=== PATIENT | female | born 1935 | race Caucasian/White ===

== ENCOUNTER 2018-03-17 09:24 | Emergency (ER) | payer MEDICARE, OTHER ==
[~2018-03-17] VITALS: Ht 152.4 cm; Wt 55.0 kg
[~2018-03-17 09:24] MED LIST: ALPR0.5T8 PO; ASPI-611 PO; CALC-729 PO; ESTR0.3T10 PO; HYDR12.5 PO; HYDR200T84 PO; IBAN150T8 PO; MULT1TAB74 PO
[2018-03-17] MEDS ORDERED: normal saline 1000ML IV soln IV ONE (10:00)
[2018-03-17 10:28] LABS: BASOPHILS % (AUTO) 0.1 % (0-1); EOSINOPHILS # (AUTO) 0.2 X10'3 (0-0.9); EOSINOPHILS % (AUTO) 1.6 % (0-6); HEMATOCRIT 35.5 % (35.0-45.0); HEMOGLOBIN 12.3 g/dl (12.0-16.0); LYMPHOCYTES # (AUTO) 0.7 X10'3 (1.1-4.8); LYMPHOCYTES % (AUTO) 5.3 % (21-51); MEAN CORPUSCULAR HEMOGLOBIN 31.8 PG (27.0-31.0); MEAN CORPUSCULAR HGB CONC 34.7 % (33.0-36.5); MEAN CORPUSCULAR VOLUME 91.5 FL (78-98); MEAN PLATELET VOLUME 8.1 FL (7.4-10.4); MONOCYTES % (AUTO) 7.3 % (2-12); NEUTROPHILS # (AUTO) 11.9 X10'3 (1.8-7.7); NEUTROPHILS % (AUTO) 85.7 % (42-75); PLATELET COUNT 357 X10'3 (140-440); RED BLOOD COUNT 3.88 X10'6 (4.20-5.60); RED CELL DISTRIBUTION WIDTH 13.7 % (11.5-14.5); WHITE BLOOD COUNT 13.8 X10'3 (4.5-11.0)
[2018-03-17 10:43] LABS: ALANINE AMINOTRANSFERASE 17 U/L (12-78); ALBUMIN 2.4 G/DL (3.4-5.0); ALBUMIN/GLOBULIN RATIO 0.6 (1.1-1.5); ALKALINE PHOSPHATASE 148 IU/L (46-116); ANION GAP 11 (8-16); ASPARTATE AMINO TRANSFERASE 26 U/L (10-37); BILIRUBIN,TOTAL 0.7 MG/DL (0.1-1.0); BLOOD UREA NITROGEN 18 MG/DL (7-18); BUN/CREATININE RATIO 21.2 (6.6-38.0); CALCIUM 8.2 MG/DL (8.5-10.1); CHLORIDE 103 MMOL/L (99-107); CREATININE 0.85 MG/DL (0.40-0.90); GLUCOSE 117 MG/DL (70-104); SODIUM 141 MMOL/L (135-145); TOTAL CARBON DIOXIDE 27.4 MMOL/L (24-32); TOTAL PROTEIN 6.2 G/DL (6.4-8.2); eGFR 64 ML/MIN
[2018-03-17 10:44] LABS: POTASSIUM 2.6 MMOL/L (3.5-5.1)
[2018-03-17] MEDS ORDERED: ciprofloxacin lact 400MG/200ML 200 ML IV STA (10:47)
[2018-03-17] MEDS ORDERED: METR250T PO (10:49)
[2018-03-17] MEDS ORDERED: CIPR-230 PO (10:49)
[2018-03-17] MEDS ORDERED: ONDA4TAB9 SL (10:49)
[2018-03-17] MEDS ORDERED: potassium Cl oral solution 20 MEQ/15 ML PO ONE (10:50)
[2018-03-17 13:44] VITALS: BP 128/66
== END 2018-03-17 13:46 | disposition home or self-care (01) ==
LOC: ER 09:25
DX: K57.92 Diverticulitis of intestine, part unspecified, without perforation or abscess without bleeding (principal); I10 Essential (primary) hypertension; Z90.49 Acquired absence of other specified parts of digestive tract; Z98.890 Other specified postprocedural states; Z88.5 Allergy status to narcotic agent; Z79.2 Long term (current) use of antibiotics; Z79.82 Long term (current) use of aspirin; Z79.899 Other long term (current) drug therapy
CPT/HCPCS: 36415; 71045; 80053; 83605; 85025; 87040; 93005; 96361; 96365; 99285; J0744; J7030

== ENCOUNTER 2018-03-23 13:15 | Inpatient (IN) | payer MEDICARE, OTHER ==
[~2018-03-23] VITALS: Ht 160 cm; Wt 87.5 kg
[2018-03-23] MEDS: NORepinephrine 8 MG in normal saline 250ml IV soln IV SCH (00:14)
[~2018-03-23 13:15] MED LIST changes: +CIPR-230 PO; +METR250T PO; +ONDA4TAB9 SL
[2018-03-23 13:48] LABS: BASOPHILS % (AUTO) 0.1 % (0-1); EOSINOPHILS % (AUTO) 0 % (0-6); HEMATOCRIT 35.8 % (35.0-45.0); HEMOGLOBIN 12.3 g/dl (12.0-16.0); LYMPHOCYTES # (AUTO) 0.4 X10'3 (1.1-4.8); LYMPHOCYTES % (AUTO) 1.5 % (21-51); MEAN CORPUSCULAR HEMOGLOBIN 31.6 PG (27.0-31.0); MEAN CORPUSCULAR HGB CONC 34.4 % (33.0-36.5); MEAN CORPUSCULAR VOLUME 91.8 FL (78-98); MEAN PLATELET VOLUME 7.8 FL (7.4-10.4); MONOCYTES # (AUTO) 0.1 X10'3 (0-0.9); MONOCYTES % (AUTO) 0.6 % (2-12); NEUTROPHILS # (AUTO) 25.9 X10'3 (1.8-7.7); NEUTROPHILS % (AUTO) 97.8 % (42-75); PLATELET COUNT 458 X10'3 (140-440); RED CELL DISTRIBUTION WIDTH 14.7 % (11.5-14.5)
[2018-03-23 13:58] LABS: WHITE BLOOD COUNT 26.4 X10'3 (4.5-11.0)
[2018-03-23] MEDS ORDERED: normal saline 1000ML IV soln IV ONE (14:00)
[2018-03-23 14:03] LABS: ALANINE AMINOTRANSFERASE 19 U/L (12-78); ALBUMIN 2.1 G/DL (3.4-5.0); ALBUMIN/GLOBULIN RATIO 0.6 (1.1-1.5); ALKALINE PHOSPHATASE 141 IU/L (46-116); ANION GAP 14 (8-16); ASPARTATE AMINO TRANSFERASE 33 U/L (10-37); BILIRUBIN,TOTAL 0.6 MG/DL (0.1-1.0); BLOOD UREA NITROGEN 23 MG/DL (7-18); BUN/CREATININE RATIO 17.2 (6.6-38.0); CALCIUM 8.8 MG/DL (8.5-10.1); CHLORIDE 100 MMOL/L (99-107); CREATININE 1.34 MG/DL (0.40-0.90); GLUCOSE 119 MG/DL (70-104); SODIUM 137 MMOL/L (135-145); TOTAL CARBON DIOXIDE 23.3 MMOL/L (24-32); TOTAL PROTEIN 5.8 G/DL (6.4-8.2); eGFR 38 ML/MIN
[2018-03-23 14:04] LABS: POTASSIUM 2.8 MMOL/L (3.5-5.1)
[2018-03-23] MEDS ORDERED: levoFLOXACIN-Levaquin 500mg/D5 100 ML IV ONE (14:05)
[2018-03-23] MEDS ORDERED: metroNIDAZOLE-Flagyl 500mg/NS 100 ML IV STA (14:05)
[2018-03-23 14:06] LABS: INR 1.3 INR; PROTHROMBIN TIME 13.8 SECONDS (9.0-12.0)
[2018-03-23 14:07] LABS: PLATELET ESTIMATE NORMAL; TOTAL CELLS COUNTED 100
[2018-03-23 14:08] LABS: TOXIC GRANULATION 1+
[2018-03-23 14:17] LABS: MAGNESIUM 1.8 MG/DL (1.5-2.4)
[2018-03-23 14:18] LABS: PARTIAL THROMBOPLASTIN TIME 28 SECONDS (22-32)
[2018-03-23] MEDS: potassium 10mEq/100ml NS w/LIDOcaine (10mg/bag) IV SCH ×4 (15:01→21:18)
[2018-03-23] MEDS ORDERED: ondansetron/PF 4mg/2ml inj IV ONE (15:15)
[2018-03-23] MEDS ORDERED: morphine 4 MG/ML inj SYRINge IV PRN (15:15)
[2018-03-23] MEDS ORDERED: normal saline 1000ML IV soln IVB ONE (15:15)
[2018-03-23] MEDS ORDERED: piperacillin/tazo 3.375gm/50ml 50 ML IV ONE (15:25)
[2018-03-23] MEDS ORDERED: ONDA4TAB12 PO (15:45)
[2018-03-23] MEDS ORDERED: ondansetron/PF 4mg/2ml inj IV PRN ×2 (15:55→23:35)
[2018-03-23] MEDS ORDERED: mag hydrox/Alum hydrox/simeth 30ml oral suspension PO PRN (15:55)
[2018-03-23] MEDS ORDERED: magnesium hydroxide 30ml (MOM) UD suspension PO PRN (15:55)
[2018-03-23] MEDS ORDERED: acetaminophen 325mg tablet PO PRN (15:55)
[2018-03-23] MEDS ORDERED: piperacillin/tazo 4.5gm/100ml 100 ML IV SCH (16:00)
[2018-03-23] MEDS ORDERED: METR250T4 PO (16:24)
[2018-03-23] MEDS ORDERED: CIPR-259 PO (16:24)
[2018-03-23] MEDS ORDERED: fentaNYL/PF 50MCG/1 ML 2ML syringe IV ONE (16:25)
[2018-03-23] MEDS ORDERED: potassium 10mEq/100ml NS w/LIDOcaine (10mg/bag) IV SCH ×2 (17:25→18:05)
[2018-03-23 17:52] VITALS: BP 109/41
[2018-03-23] MEDS ORDERED: potassium Cl 10 mEq/100mL bag IV ONE (17:57)
[2018-03-23] MEDS: normal saline 1000ml 1,000 ML IV SCH ×2 (18:00→19:14)
[2018-03-23] MEDS ORDERED: potassium Cl 10 mEq/100mL bag IV SCH (18:00)
[2018-03-23 19:05] VITALS: BP 123/54
[2018-03-23] MEDS ORDERED: LIDOcaine 1% (10mg/ml) 2ml vial ONE (21:10)
[2018-03-23] MEDS ORDERED: sevoflurane 250ml liquid IH ONE (21:52)
[2018-03-23] MEDS ORDERED: midazolam 2 mg/2 ml injection ONE (21:57)
[2018-03-23] MEDS ORDERED: fentaNYL/PF 50MCG/1 ML 2ML syringe ONE (21:57)
[2018-03-23] MEDS ORDERED: Potassium Cl inj 40 MEQ in normal saline 250ml IV soln 230 ML IV ONE (22:15)
[2018-03-23] MEDS ORDERED: ceFOXitin 1000 MG inj ONE (22:42)
[2018-03-23] MEDS ORDERED: rocuronium 10mg/ml inj IV ONE (22:42)
[2018-03-23] MEDS ORDERED: propofol inj 20 ML IV ONE (22:42)
[2018-03-23] MEDS ORDERED: LIDOcaine 1%/PF 5ML 10 MG/ML VIAL ONE (22:42)
[2018-03-23 23:11] LABS: ABG BASE EXCESS -2.8 mmol/L (-2.0-3.0); ABG OXYGEN SATURATION 97.5 % (95-98); ABG PH (T) 7.388 (7.350-7.450); ABG PO2 (T) 109.6 mmHg (83-108); FCOHb 0.3 % (0.5-1.5); FMetHb 0.3 % (0.3-1.12); FO2Hb 96.9 % (94-100); PATIENT TEMPERATURE 36.3; TOTAL HEMOGLOBIN 10.8 G/dl (12.0-16.0)
[2018-03-23 23:11] LABS: ISTAT CREATININE 0.9 mg/dL (0.6-1.1); ISTAT HGB 10.2 g/dl (12.0-16.0); ISTAT IONIZED CALCIUM 1.18 mmol/L (1.03-1.32); ISTAT K 4.3 mmol/L (3.5-5.1); POC BUN/CREATININE RATIO 24.4 (6.6-38.0)
[2018-03-23 23:25] LABS: CLARITY,URINE CLEAR (Clear); COLOR,URINE BROWN (Yellow)
[2018-03-23] MEDS ORDERED: ringers solution, lacted 1,000 ML IV SCH (23:32)
[2018-03-23] MEDS ORDERED: meperidine/PF 25mg/ml syringe IV PRN (23:35)
[2018-03-23] MEDS ORDERED: proCHLORperazine 10 MG/2 ml inj IV PRN (23:35)
[2018-03-23] MEDS ORDERED: midazolam 2 mg/2 ml injection IV ONE (23:35)
[2018-03-23] MEDS ORDERED: fentaNYL/PF 50MCG/1 ML 2ML syringe IV PRN ×3 (23:35)
[2018-03-23 23:40] LABS: UA COLLECTION TYPE FOLEY CATH
[2018-03-23 23:42] LABS: BACTERIA,URINE FEW /HPF (Neg); HYALINE CASTS 0-3 /LPF (NEGATIVE); MUCUS STRANDS FEW /LPF (Neg); RBC,URINE 0-2 /HPF (0-2); SQUAMOUS EPITHELIAL CELL,UR MODERATE /LPF (FEW); WBC,URINE 0-4 /HPF (0-4)
[2018-03-24] VITALS (27 sets, daily range): BP systolic 88–146; BP diastolic 41–79
[2018-03-24] MEDS ORDERED: adenosine 3mg/ml 2ml vial IV ONE (00:31)
[2018-03-24 00:46] LABS: ABG BASE EXCESS -6.3 mmol/L (-2.0-3.0); ABG HCO3 18.7 mmol/L (22.0-26.0); ABG OXYGEN SATURATION 94.5 % (95-98); ABG PCO2 (T) 35.7 mmHg (32.0-45.0); ABG PH (T) 7.337 (7.350-7.450); ABG PO2 (T) 78.2 mmHg (83-108); FCOHb 0.3 % (0.5-1.5); FMetHb 0.3 % (0.3-1.12); FO2Hb 93.9 % (94-100); MINUTE VOLUME 10 L/min; PATIENT TEMPERATURE 37.2; PEEP 5 cm H2O; RESPIRATORY RATE 12 b/min; RESPIRATORY RATE (OBSERVED) 24 b/min; TIDAL VOLUME 450 mL; TOTAL HEMOGLOBIN 12.4 G/dl (12.0-16.0)
[2018-03-24 01:00] LABS: BASOPHILS # (AUTO) 0.1 X10'3 (0-0.2); BASOPHILS % (AUTO) 0.6 % (0-1); EOSINOPHILS % (AUTO) 0.1 % (0-6); HEMATOCRIT 34.8 % (35.0-45.0); HEMOGLOBIN 12.1 g/dl (12.0-16.0); LYMPHOCYTES # (AUTO) 0.8 X10'3 (1.1-4.8); LYMPHOCYTES % (AUTO) 3.4 % (21-51); MEAN CORPUSCULAR HEMOGLOBIN 32.5 PG (27.0-31.0); MEAN CORPUSCULAR HGB CONC 34.7 % (33.0-36.5); MEAN CORPUSCULAR VOLUME 93.9 FL (78-98); MEAN PLATELET VOLUME 8.4 FL (7.4-10.4); MONOCYTES # (AUTO) 0.3 X10'3 (0-0.9); MONOCYTES % (AUTO) 1.1 % (2-12); NEUTROPHILS # (AUTO) 21.8 X10'3 (1.8-7.7); NEUTROPHILS % (AUTO) 94.8 % (42-75); PLATELET COUNT 519 X10'3 (140-440); RED CELL DISTRIBUTION WIDTH 13.9 % (11.5-14.5)
[2018-03-24] MEDS ORDERED: piperacillin/tazo 4.5gm/100ml 100 ML IV ONE (01:09)
[2018-03-24] MEDS: piperacillin/tazo 4.5gm/100ml 100 ML IV SCH ×4 (01:11→23:53)
[2018-03-24 01:19] LABS: ALANINE AMINOTRANSFERASE 11 U/L (12-78); ALBUMIN 1.7 G/DL (3.4-5.0); ALBUMIN/GLOBULIN RATIO 0.5 (1.1-1.5); ALKALINE PHOSPHATASE 121 IU/L (46-116); ANION GAP 14 (8-16); ASPARTATE AMINO TRANSFERASE 31 U/L (10-37); BILIRUBIN,TOTAL 0.5 MG/DL (0.1-1.0); BLOOD UREA NITROGEN 23 MG/DL (7-18); BUN/CREATININE RATIO 19.7 (6.6-38.0); CHLORIDE 109 MMOL/L (99-107); CREATININE 1.17 MG/DL (0.40-0.90); GLUCOSE 106 MG/DL (70-104); MAGNESIUM 1.6 MG/DL (1.5-2.4); PHOSPHORUS 2.7 MG/DL (2.3-4.5); SODIUM 143 MMOL/L (135-145); TOTAL CARBON DIOXIDE 19.7 MMOL/L (24-32); TOTAL PROTEIN 4.8 G/DL (6.4-8.2); eGFR 44 ML/MIN
[2018-03-24 01:28] LABS: PLATELET ESTIMATE INCREASED; TOTAL CELLS COUNTED 100; TOXIC GRANULATION 2+
[2018-03-24 01:29] LABS: BURR CELLS 2+
[2018-03-24 04:42] LABS: BASOPHILS % (AUTO) 0 % (0-1); EOSINOPHILS % (AUTO) 0 % (0-6); HEMATOCRIT 34.1 % (35.0-45.0); HEMOGLOBIN 11.5 g/dl (12.0-16.0); LYMPHOCYTES # (AUTO) 0.4 X10'3 (1.1-4.8); LYMPHOCYTES % (AUTO) 1.4 % (21-51); MEAN CORPUSCULAR HEMOGLOBIN 31.3 PG (27.0-31.0); MEAN CORPUSCULAR HGB CONC 33.6 % (33.0-36.5); MEAN PLATELET VOLUME 8.4 FL (7.4-10.4); MONOCYTES # (AUTO) 0.2 X10'3 (0-0.9); MONOCYTES % (AUTO) 0.8 % (2-12); NEUTROPHILS # (AUTO) 25.1 X10'3 (1.8-7.7); NEUTROPHILS % (AUTO) 97.8 % (42-75); PLATELET COUNT 438 X10'3 (140-440); RED BLOOD COUNT 3.67 X10'6 (4.20-5.60); RED CELL DISTRIBUTION WIDTH 14.9 % (11.5-14.5)
[2018-03-24 04:47] LABS: WHITE BLOOD COUNT 25.6 X10'3 (4.5-11.0)
[2018-03-24 04:49] LABS: ALBUMIN 1.6 G/DL (3.4-5.0); ANION GAP 11 (8-16); BLOOD UREA NITROGEN 25 MG/DL (7-18); BUN/CREATININE RATIO 23.1 (6.6-38.0); CALCIUM 7.8 MG/DL (8.5-10.1); CHLORIDE 109 MMOL/L (99-107); CREATININE 1.08 MG/DL (0.40-0.90); GLUCOSE 107 MG/DL (70-104); POTASSIUM 3.9 MMOL/L (3.5-5.1); SODIUM 141 MMOL/L (135-145); TOTAL CARBON DIOXIDE 20.8 MMOL/L (24-32); eGFR 49 ML/MIN
[2018-03-24 05:01] LABS: PLATELET ESTIMATE INCREASED; TOTAL CELLS COUNTED 100
[2018-03-24 05:02] LABS: TOXIC GRANULATION 2+
[2018-03-24 05:03] LABS: BURR CELLS 2+
[2018-03-24] MEDS: fluconazole-Diflucan 200mg/NS 100 ML IV SCH ×2 (07:07→07:14)
[2018-03-24] MEDS: enoxaparin 40mg/0.4ml syringe SUBCUT SCH (07:08)
[2018-03-24] MEDS ORDERED: normal saline 1000ml 1,000 ML IV ONE (07:55)
[2018-03-24] MEDS: FENTANYL-0.9 % NACL/PF 100 ML IV PRN (09:29)
[2018-03-24] MEDS: normal saline 1000ml 1,000 ML IV SCH ×2 (11:20→23:41)
[2018-03-24] MEDS: pantoprazole 40 MG vial IV SCH (12:36)
[2018-03-24] MEDS ORDERED: albumin (Human) 5% 250 ML IV solution IV STA (12:51)
[2018-03-24] MEDS: NORepinephrine 8 MG in normal saline 250ml IV soln IV SCH (23:42)
[2018-03-25] VITALS (25 sets, daily range): BP systolic 77–166; BP diastolic 37–74
[2018-03-25] MEDS: mineral oil/petrolatum ophthal oint EACHEYE SCH ×4 (02:00→20:00)
[2018-03-25] MEDS: normal saline 1000ml 1,000 ML IV SCH ×3 (02:20→14:35)
[2018-03-25 03:09] LABS: BASOPHILS % (AUTO) 0 % (0-1); EOSINOPHILS % (AUTO) 0 % (0-6); HEMATOCRIT 28.5 % (35.0-45.0); HEMOGLOBIN 9.6 g/dl (12.0-16.0); LYMPHOCYTES # (AUTO) 0.6 X10'3 (1.1-4.8); MEAN CORPUSCULAR HEMOGLOBIN 31.2 PG (27.0-31.0); MEAN CORPUSCULAR HGB CONC 33.7 % (33.0-36.5); MEAN CORPUSCULAR VOLUME 92.8 FL (78-98); MEAN PLATELET VOLUME 7.4 FL (7.4-10.4); MONOCYTES # (AUTO) 0.6 X10'3 (0-0.9); MONOCYTES % (AUTO) 2.9 % (2-12); NEUTROPHILS # (AUTO) 19.1 X10'3 (1.8-7.7); NEUTROPHILS % (AUTO) 94.1 % (42-75); PLATELET COUNT 342 X10'3 (140-440); RED BLOOD COUNT 3.08 X10'6 (4.20-5.60); RED CELL DISTRIBUTION WIDTH 15.3 % (11.5-14.5); WHITE BLOOD COUNT 20.3 X10'3 (4.5-11.0)
[2018-03-25 03:17] LABS: ALBUMIN 1.9 G/DL (3.4-5.0); ANION GAP 13 (8-16); BLOOD UREA NITROGEN 33 MG/DL (7-18); BUN/CREATININE RATIO 26.6 (6.6-38.0); CALCIUM 7.1 MG/DL (8.5-10.1); CHLORIDE 113 MMOL/L (99-107); CREATININE 1.24 MG/DL (0.40-0.90); GLUCOSE 110 MG/DL (70-104); POTASSIUM 3.2 MMOL/L (3.5-5.1); SODIUM 145 MMOL/L (135-145); TOTAL CARBON DIOXIDE 18.6 MMOL/L (24-32); eGFR 41 ML/MIN
[2018-03-25 03:56] LABS: ABG BASE EXCESS -10.7 mmol/L (-2.0-3.0); ABG HCO3 15.5 mmol/L (22.0-26.0); ABG OXYGEN SATURATION 97.4 % (95-98); ABG PH (T) 7.253 (7.350-7.450); ABG PO2 (T) 112.4 mmHg (83-108); FCOHb 0.3 % (0.5-1.5); FMetHb 0.1 % (0.3-1.12); MINUTE VOLUME 6 L/min; PATIENT TEMPERATURE 37.3; PEEP 5 cm H2O; RESPIRATORY RATE 12 b/min; RESPIRATORY RATE (OBSERVED) 12 b/min; TIDAL VOLUME 450 mL; TOTAL HEMOGLOBIN 10.5 G/dl (12.0-16.0)
[2018-03-25] MEDS ORDERED: potassium Cl 40MEQ/250ML bag 250 ML IV ONE (03:56)
[2018-03-25] MEDS ORDERED: potassium Cl 40MEQ/250ML bag 250 ML IV PRN (04:20)
[2018-03-25] MEDS ORDERED: magnesium 4gm in 100ml NS 100 ML IV PRN (04:20)
[2018-03-25] MEDS ORDERED: magnesium 1gm/100ml D5W IVPB 100 ML IV PRN (04:20)
[2018-03-25] MEDS: potassium Cl 40MEQ/250ML bag 250 ML IV PRN (04:29)
[2018-03-25] MEDS: piperacillin/tazo 4.5gm/100ml 100 ML IV SCH ×2 (07:24→16:16)
[2018-03-25] MEDS: enoxaparin 40mg/0.4ml syringe SUBCUT SCH (07:24)
[2018-03-25] MEDS: pantoprazole 40 MG vial IV SCH (07:24)
[2018-03-25] MEDS: fluconazole-Diflucan 200mg/NS 100 ML IV SCH (07:26)
[2018-03-25] MEDS: NORepinephrine 8 MG in normal saline 250ml IV soln IV SCH (09:24)
[2018-03-25] MEDS: FENTANYL-0.9 % NACL/PF 100 ML IV PRN (09:41)
[2018-03-25] MEDS ORDERED: Dextrose 10%-water IV solution 1,000 ML IV PRN (20:00)
[2018-03-26] VITALS (24 sets, daily range): BP systolic 102–144; BP diastolic 50–76
[2018-03-26] MEDS: piperacillin/tazo 4.5gm/100ml 100 ML IV SCH ×3 (00:27→16:40)
[2018-03-26] MEDS: normal saline 1000ml 1,000 ML IV SCH ×2 (01:32→10:35)
[2018-03-26 02:02] LABS: ALANINE AMINOTRANSFERASE 10 U/L (12-78); ALBUMIN 1.5 G/DL (3.4-5.0); ALBUMIN/GLOBULIN RATIO 0.6 (1.1-1.5); ALKALINE PHOSPHATASE 79 IU/L (46-116); ANION GAP 11 (8-16); ASPARTATE AMINO TRANSFERASE 19 U/L (10-37); BILIRUBIN,TOTAL 0.4 MG/DL (0.1-1.0); BLOOD UREA NITROGEN 33 MG/DL (7-18); CALCIUM 6.9 MG/DL (8.5-10.1); CHLORIDE 117 MMOL/L (99-107); CREATININE 0.93 MG/DL (0.40-0.90); GLUCOSE 112 MG/DL (70-104); MAGNESIUM 1.7 MG/DL (1.5-2.4); POTASSIUM 3.2 MMOL/L (3.5-5.1); SODIUM 147 MMOL/L (135-145); TOTAL CARBON DIOXIDE 18.7 MMOL/L (24-32); TOTAL PROTEIN 4.1 G/DL (6.4-8.2); eGFR 58 ML/MIN
[2018-03-26 02:09] LABS: BUN/CREATININE RATIO 35.5 (6.6-38.0)
[2018-03-26 02:10] LABS: BASOPHILS % (AUTO) 0 % (0-1); EOSINOPHILS % (AUTO) 0.1 % (0-6); HEMATOCRIT 25.2 % (35.0-45.0); HEMOGLOBIN 8.4 g/dl (12.0-16.0); LYMPHOCYTES # (AUTO) 0.6 X10'3 (1.1-4.8); LYMPHOCYTES % (AUTO) 4.1 % (21-51); MEAN CORPUSCULAR HEMOGLOBIN 31.1 PG (27.0-31.0); MEAN CORPUSCULAR HGB CONC 33.4 % (33.0-36.5); MEAN CORPUSCULAR VOLUME 93.1 FL (78-98); MEAN PLATELET VOLUME 7.1 FL (7.4-10.4); MONOCYTES # (AUTO) 0.5 X10'3 (0-0.9); MONOCYTES % (AUTO) 3.3 % (2-12); NEUTROPHILS # (AUTO) 12.6 X10'3 (1.8-7.7); NEUTROPHILS % (AUTO) 92.5 % (42-75); PLATELET COUNT 259 X10'3 (140-440); RED BLOOD COUNT 2.71 X10'6 (4.20-5.60); RED CELL DISTRIBUTION WIDTH 15.5 % (11.5-14.5); WHITE BLOOD COUNT 13.7 X10'3 (4.5-11.0)
[2018-03-26 02:36] LABS: ABG BASE EXCESS -10.8 mmol/L (-2.0-3.0); ABG HCO3 13.9 mmol/L (22.0-26.0); ABG OXYGEN SATURATION 96.9 % (95-98); ABG PCO2 (T) 25.3 mmHg (32.0-45.0); ABG PH (T) 7.349 (7.350-7.450); ABG PO2 (T) 90.5 mmHg (83-108); ALLEN'S TEST Positive; FCOHb 0.3 % (0.5-1.5); FMetHb 0.3 % (0.3-1.12); FO2Hb 96.3 % (94-100); MINUTE VOLUME 7 L/min; PATIENT TEMPERATURE 35.3; PEEP 5 cm H2O; RESPIRATORY RATE 14 b/min; RESPIRATORY RATE (OBSERVED) 14 b/min; TIDAL VOLUME 450 mL; TOTAL HEMOGLOBIN 9.9 G/dl (12.0-16.0)
[2018-03-26] MEDS: mineral oil/petrolatum ophthal oint EACHEYE SCH ×3 (02:45→14:42)
[2018-03-26] MEDS: potassium Cl 40MEQ/250ML bag 250 ML IV PRN (02:45)
[2018-03-26] MEDS ORDERED: potassium Cl 40MEQ/250ML bag 250 ML IV ONE (03:29)
[2018-03-26] MEDS: FENTANYL-0.9 % NACL/PF 100 ML IV PRN (06:14)
[2018-03-26] MEDS: pantoprazole 40 MG vial IV SCH (07:33)
[2018-03-26] MEDS: fluconazole-Diflucan 200mg/NS 100 ML IV SCH (07:34)
[2018-03-26] MEDS ORDERED: enoxaparin 30mg/0.3ml syringe SUBCUT SCH (08:00)
[2018-03-27] VITALS (22 sets, daily range): BP systolic 103–148; BP diastolic 38–88
[2018-03-27] MEDS: piperacillin/tazo 4.5gm/100ml 100 ML IV SCH ×3 (00:19→15:59)
[2018-03-27] MEDS: mineral oil/petrolatum ophthal oint EACHEYE SCH ×5 (00:19→20:43)
[2018-03-27] MEDS: normal saline 1000ml 1,000 ML IV SCH ×4 (00:20→23:01)
[2018-03-27 02:34] LABS: BASOPHILS % (AUTO) 0 % (0-1); EOSINOPHILS # (AUTO) 0.1 X10'3 (0-0.9); EOSINOPHILS % (AUTO) 1.1 % (0-6); HEMATOCRIT 24.3 % (35.0-45.0); HEMOGLOBIN 8.3 g/dl (12.0-16.0); LYMPHOCYTES # (AUTO) 0.4 X10'3 (1.1-4.8); LYMPHOCYTES % (AUTO) 3.3 % (21-51); MEAN CORPUSCULAR HEMOGLOBIN 31.3 PG (27.0-31.0); MEAN CORPUSCULAR VOLUME 92.1 FL (78-98); MEAN PLATELET VOLUME 6.9 FL (7.4-10.4); MONOCYTES # (AUTO) 0.4 X10'3 (0-0.9); MONOCYTES % (AUTO) 3.6 % (2-12); PLATELET COUNT 217 X10'3 (140-440); RED BLOOD COUNT 2.64 X10'6 (4.20-5.60); RED CELL DISTRIBUTION WIDTH 15.3 % (11.5-14.5); WHITE BLOOD COUNT 11.9 X10'3 (4.5-11.0)
[2018-03-27 02:49] LABS: ALANINE AMINOTRANSFERASE 15 U/L (12-78); ALBUMIN 1.4 G/DL (3.4-5.0); ALBUMIN/GLOBULIN RATIO 0.5 (1.1-1.5); ALKALINE PHOSPHATASE 75 IU/L (46-116); ANION GAP 10 (8-16); ASPARTATE AMINO TRANSFERASE 26 U/L (10-37); BILIRUBIN,TOTAL 0.5 MG/DL (0.1-1.0); BLOOD UREA NITROGEN 30 MG/DL (7-18); BUN/CREATININE RATIO 46.9 (6.6-38.0); CALCIUM 7.5 MG/DL (8.5-10.1); CHLORIDE 119 MMOL/L (99-107); CREATININE 0.64 MG/DL (0.40-0.90); GLUCOSE 85 MG/DL (70-104); MAGNESIUM 1.9 MG/DL (1.5-2.4); PHOSPHORUS 1.7 MG/DL (2.3-4.5); POTASSIUM 3.5 MMOL/L (3.5-5.1); SODIUM 149 MMOL/L (135-145); TOTAL CARBON DIOXIDE 19.9 MMOL/L (24-32); TOTAL PROTEIN 4.1 G/DL (6.4-8.2); eGFR 89 ML/MIN
[2018-03-27 03:01] LABS: ABG BASE EXCESS -4.9 mmol/L (-2.0-3.0); ABG HCO3 19.1 mmol/L (22.0-26.0); ABG OXYGEN SATURATION 97.8 % (95-98); ABG PCO2 (T) 30.4 mmHg (32.0-45.0); ABG PH (T) 7.412 (7.350-7.450); ABG PO2 (T) 99.3 mmHg (83-108); ALLEN'S TEST Positive; FCOHb 0.1 % (0.5-1.5); FMetHb 0.3 % (0.3-1.12); FO2Hb 97.4 % (94-100); MINUTE VOLUME 7 L/min; PATIENT TEMPERATURE 36.5; PEEP 5 cm H2O; RESPIRATORY RATE 14 b/min; RESPIRATORY RATE (OBSERVED) 14 b/min; TIDAL VOLUME 450 mL; TOTAL HEMOGLOBIN 9.2 G/dl (12.0-16.0)
[2018-03-27] MEDS: pantoprazole 40 MG vial IV SCH (07:42)
[2018-03-27] MEDS: fluconazole-Diflucan 200mg/NS 100 ML IV SCH (07:43)
[2018-03-27] MEDS: FENTANYL-0.9 % NACL/PF 100 ML IV PRN (07:43)
[2018-03-27] MEDS: enoxaparin 40mg/0.4ml syringe SUBCUT SCH (07:44)
[2018-03-27] MEDS: NORepinephrine 8 MG in normal saline 250ml IV soln IV SCH (20:40)
[2018-03-27] MEDS: midazolam 100mg in NS 100ml 100 ML IV PRN (20:44)
[2018-03-28] VITALS (24 sets, daily range): BP systolic 101–161; BP diastolic 51–85
[2018-03-28] MEDS: mineral oil/petrolatum ophthal oint EACHEYE SCH ×4 (02:00→20:31)
[2018-03-28 03:18] LABS: BASOPHILS % (AUTO) 0 % (0-1); EOSINOPHILS # (AUTO) 0.1 X10'3 (0-0.9); EOSINOPHILS % (AUTO) 0.9 % (0-6); HEMATOCRIT 25.6 % (35.0-45.0); HEMOGLOBIN 8.8 g/dl (12.0-16.0); LYMPHOCYTES # (AUTO) 0.4 X10'3 (1.1-4.8); LYMPHOCYTES % (AUTO) 3.5 % (21-51); MEAN CORPUSCULAR HEMOGLOBIN 31.3 PG (27.0-31.0); MEAN CORPUSCULAR HGB CONC 34.3 % (33.0-36.5); MEAN CORPUSCULAR VOLUME 91.3 FL (78-98); MONOCYTES # (AUTO) 0.5 X10'3 (0-0.9); MONOCYTES % (AUTO) 3.8 % (2-12); NEUTROPHILS % (AUTO) 91.8 % (42-75); PLATELET COUNT 246 X10'3 (140-440); RED BLOOD COUNT 2.81 X10'6 (4.20-5.60); RED CELL DISTRIBUTION WIDTH 15.4 % (11.5-14.5)
[2018-03-28 03:42] LABS: ALANINE AMINOTRANSFERASE 17 U/L (12-78); ALBUMIN 1.6 G/DL (3.4-5.0); ALBUMIN/GLOBULIN RATIO 0.5 (1.1-1.5); ALKALINE PHOSPHATASE 85 IU/L (46-116); ANION GAP 11 (8-16); ASPARTATE AMINO TRANSFERASE 30 U/L (10-37); BILIRUBIN,TOTAL 0.7 MG/DL (0.1-1.0); BLOOD UREA NITROGEN 23 MG/DL (7-18); BUN/CREATININE RATIO 39.7 (6.6-38.0); CALCIUM 7.4 MG/DL (8.5-10.1); CHLORIDE 118 MMOL/L (99-107); CREATININE 0.58 MG/DL (0.40-0.90); GLUCOSE 83 MG/DL (70-104); MAGNESIUM 1.8 MG/DL (1.5-2.4); PHOSPHORUS 1.9 MG/DL (2.3-4.5); POTASSIUM 3.2 MMOL/L (3.5-5.1); SODIUM 148 MMOL/L (135-145); TOTAL CARBON DIOXIDE 18.8 MMOL/L (24-32); TOTAL PROTEIN 4.7 G/DL (6.4-8.2); TRIGLYCERIDES 83 MG/DL (20-135); eGFR > 90 ML/MIN
[2018-03-28] MEDS: FENTANYL-0.9 % NACL/PF 100 ML IV PRN (03:53)
[2018-03-28 04:32] LABS: PREALBUMIN 9.2 MG/DL (19-36)
[2018-03-28 04:51] LABS: ABG BASE EXCESS -6.1 mmol/L (-2.0-3.0); ABG HCO3 18.1 mmol/L (22.0-26.0); ABG OXYGEN SATURATION 97.3 % (95-98); ABG PCO2 (T) 30.4 mmHg (32.0-45.0); ABG PH (T) 7.391 (7.350-7.450); ABG PO2 (T) 96.7 mmHg (83-108); ALLEN'S TEST Positive; FCOHb 0.1 % (0.5-1.5); FO2Hb 97.2 % (94-100); MINUTE VOLUME 7 L/min; PATIENT TEMPERATURE 36.7; PEEP 5 cm H2O; RESPIRATORY RATE 14 b/min; RESPIRATORY RATE (OBSERVED) 14 b/min; TIDAL VOLUME 450 mL; TOTAL HEMOGLOBIN 8.8 G/dl (12.0-16.0)
[2018-03-28] MEDS ORDERED: potassium Cl 40MEQ/250ML bag 250 ML IV ONE (05:25)
[2018-03-28] MEDS: methylnaltrexone br 12mg/0.6ml inj***SubQ only SQ SCH (08:00)
[2018-03-28] MEDS: piperacillin/tazo 4.5gm/100ml 100 ML IV SCH ×3 (08:00→15:46)
[2018-03-28] MEDS: fluconazole-Diflucan 200mg/NS 100 ML IV SCH (08:00)
[2018-03-28] MEDS: pantoprazole 40 MG vial IV SCH (08:00)
[2018-03-28] MEDS: enoxaparin 40mg/0.4ml syringe SUBCUT SCH (08:01)
[2018-03-28] MEDS ORDERED: Dextrose 10%-water IV solution 1,000 ML IV PRN (09:50)
[2018-03-28] MEDS ORDERED: magnesium 4gm in 100ml NS 100 ML IV PRN (09:50)
[2018-03-28] MEDS ORDERED: magnesium Cl slow-release 64mg tablet PO PRN (09:50)
[2018-03-28] MEDS ORDERED: magnesium 1gm/100ml D5W IVPB 50 ML IV PRN (09:50)
[2018-03-28 11:05] LABS: ALANINE AMINOTRANSFERASE 18 U/L (12-78); ALBUMIN 1.4 G/DL (3.4-5.0); ALBUMIN/GLOBULIN RATIO 0.5 (1.1-1.5); ALKALINE PHOSPHATASE 76 IU/L (46-116); ANION GAP 14 (8-16); ASPARTATE AMINO TRANSFERASE 26 U/L (10-37); BILIRUBIN,TOTAL 0.7 MG/DL (0.1-1.0); BLOOD UREA NITROGEN 21 MG/DL (7-18); CALCIUM 6.7 MG/DL (8.5-10.1); CHLORIDE 120 MMOL/L (99-107); GLUCOSE 78 MG/DL (70-104); MAGNESIUM 1.7 MG/DL (1.5-2.4); PHOSPHORUS 1.6 MG/DL (2.3-4.5); POTASSIUM 3.1 MMOL/L (3.5-5.1); PREALBUMIN 8.6 MG/DL (19-36); SODIUM 150 MMOL/L (135-145); TOTAL CARBON DIOXIDE 16.5 MMOL/L (24-32); TOTAL PROTEIN 4.5 G/DL (6.4-8.2); TRIGLYCERIDES 79 MG/DL (20-135); eGFR > 90 ML/MIN
[2018-03-28] MEDS: diatr meglu/diatrizoate 30ml oral sol.-(3 dose) bottle PO SCH ×4 (11:34→17:19)
[2018-03-28] MEDS: fat emulsion IV 100 ML, MVI, adult No.4 with vit. K 10 ML, Trace element-5 inj. 1 ML in... IV SCH ×4 (11:35)
[2018-03-28] MEDS: normal saline 1000ml 1,000 ML IV SCH ×2 (12:54→22:35)
[2018-03-28] MEDS ORDERED: magnesium hydroxide 30ml (MOM) UD suspension PO ONE (13:15)
[2018-03-28] MEDS: metoclopramide 5 mg/ml inj IV SCH (15:46)
[2018-03-28] MEDS: midazolam 100mg in NS 100ml 100 ML IV PRN (15:47)
[2018-03-29] VITALS (24 sets, daily range): BP systolic 104–158; BP diastolic 51–79
[2018-03-29] MEDS: FENTANYL-0.9 % NACL/PF 100 ML IV PRN (00:06)
[2018-03-29] MEDS: piperacillin/tazo 4.5gm/100ml 100 ML IV SCH ×3 (00:06→15:27)
[2018-03-29] MEDS: metoclopramide 5 mg/ml inj IV SCH ×2 (00:06→08:20)
[2018-03-29] MEDS: mineral oil/petrolatum ophthal oint EACHEYE SCH ×4 (02:00→20:21)
[2018-03-29 02:55] LABS: ALANINE AMINOTRANSFERASE 14 U/L (12-78); ALBUMIN 1.3 G/DL (3.4-5.0); ALBUMIN/GLOBULIN RATIO 0.4 (1.1-1.5); ALKALINE PHOSPHATASE 70 IU/L (46-116); ANION GAP 7 (8-16); ASPARTATE AMINO TRANSFERASE 22 U/L (10-37); BILIRUBIN,TOTAL 0.5 MG/DL (0.1-1.0); BLOOD UREA NITROGEN 19 MG/DL (7-18); BUN/CREATININE RATIO 32.2 (6.6-38.0); CALCIUM 7.2 MG/DL (8.5-10.1); CHLORIDE 119 MMOL/L (99-107); CREATININE 0.59 MG/DL (0.40-0.90); GLUCOSE 209 MG/DL (70-104); MAGNESIUM 1.8 MG/DL (1.5-2.4); PHOSPHORUS 1.9 MG/DL (2.3-4.5); SODIUM 148 MMOL/L (135-145); TOTAL PROTEIN 4.3 G/DL (6.4-8.2); eGFR > 90 ML/MIN
[2018-03-29] MEDS ORDERED: insulin Lispro (HumaLOG) vial - multi-dose SQ SCH (03:10)
[2018-03-29] MEDS ORDERED: glucagon, human recombinant 1mg kit SUBCUT PRN (03:10)
[2018-03-29] MEDS ORDERED: dextrose 50%-water 50ml dispensing syringe IV PRN ×2 (03:10)
[2018-03-29] MEDS ORDERED: dextrose ORAL solution 15 GM/59 ML bottle PO PRN ×2 (03:10)
[2018-03-29 03:35] LABS: ABG BASE EXCESS -3.8 mmol/L (-2.0-3.0); ABG OXYGEN SATURATION 96.6 % (95-98); ABG PH (T) 7.427 (7.350-7.450); ABG PO2 (T) 85.3 mmHg (83-108); ALLEN'S TEST Positive; FCOHb 0.1 % (0.5-1.5); FMetHb 0.3 % (0.3-1.12); FO2Hb 96.2 % (94-100); MINUTE VOLUME 7 L/min; PATIENT TEMPERATURE 36.8; PEEP 5 cm H2O; RESPIRATORY RATE 10 b/min; RESPIRATORY RATE (OBSERVED) 12 b/min; TIDAL VOLUME 550 mL; TOTAL HEMOGLOBIN 7.8 G/dl (12.0-16.0)
[2018-03-29] MEDS ORDERED: potassium Cl 40MEQ/250ML bag 500 ML IV ONE (03:39)
[2018-03-29] MEDS ORDERED: insulin regular, human vial - multi-dose ONE (03:39)
[2018-03-29] MEDS: insulin regular, human vial - multi-dose SQ SCH ×4 (03:56→20:25)
[2018-03-29] MEDS ORDERED: sodium phosphate inj. 15 MMOL in dextrose 5%-water 150 ML IV PRN (07:00)
[2018-03-29] MEDS ORDERED: Neutra Phos packet PO PRN (07:00)
[2018-03-29] MEDS ORDERED: sodium phosphate inj. 30 MMOL in dextrose 5%-water 250 ML IV PRN (07:00)
[2018-03-29] MEDS: pantoprazole 40 MG vial IV SCH (08:20)
[2018-03-29] MEDS: fluconazole-Diflucan 200mg/NS 100 ML IV SCH (08:20)
[2018-03-29] MEDS: enoxaparin 40mg/0.4ml syringe SUBCUT SCH (08:21)
[2018-03-29] MEDS ORDERED: magnesium hydroxide 30ml (MOM) UD suspension NG ONE (15:05)
[2018-03-29] MEDS: dexmedetomidin/NS 400mcg/100ml 100 ML IV SCH (15:33)
[2018-03-29] MEDS: fat emulsion IV 100 ML, MVI, adult No.4 with vit. K 10 ML, Trace element-5 inj. 1 ML in... IV SCH ×4 (19:04)
[2018-03-29] MEDS: insulin glargine (Lantus) pen - multi-dose SQ SCH (20:24)
[2018-03-30] VITALS (23 sets, daily range): BP systolic 99–162; BP diastolic 45–76
[2018-03-30] MEDS: dexmedetomidin/NS 400mcg/100ml 100 ML IV SCH (00:38)
[2018-03-30] MEDS: piperacillin/tazo 4.5gm/100ml 100 ML IV SCH ×4 (00:42→23:26)
[2018-03-30] MEDS: mineral oil/petrolatum ophthal oint EACHEYE SCH ×4 (02:41→19:10)
[2018-03-30] MEDS: insulin regular, human vial - multi-dose SQ SCH ×4 (02:43→20:49)
[2018-03-30 02:50] LABS: ABG BASE EXCESS -3.6 mmol/L (-2.0-3.0); ABG HCO3 20.3 mmol/L (22.0-26.0); ABG OXYGEN SATURATION 96.4 % (95-98); ABG PH (T) 7.431 (7.350-7.450); ABG PO2 (T) 85.3 mmHg (83-108); ALLEN'S TEST Positive; FCOHb 0.3 % (0.5-1.5); FMetHb 0.1 % (0.3-1.12); MINUTE VOLUME 10 L/min; PATIENT TEMPERATURE 36.4; PEEP 5 cm H2O; RESPIRATORY RATE (OBSERVED) 17 b/min; TOTAL HEMOGLOBIN 8.5 G/dl (12.0-16.0)
[2018-03-30 02:50] LABS: BASOPHILS % (AUTO) 0.1 % (0-1); EOSINOPHILS # (AUTO) 0.3 X10'3 (0-0.9); EOSINOPHILS % (AUTO) 3.3 % (0-6); HEMATOCRIT 23.2 % (35.0-45.0); HEMOGLOBIN 7.9 g/dl (12.0-16.0); LYMPHOCYTES # (AUTO) 0.5 X10'3 (1.1-4.8); MEAN CORPUSCULAR HEMOGLOBIN 31.3 PG (27.0-31.0); MEAN CORPUSCULAR HGB CONC 33.8 % (33.0-36.5); MEAN CORPUSCULAR VOLUME 92.7 FL (78-98); MEAN PLATELET VOLUME 7.7 FL (7.4-10.4); MONOCYTES # (AUTO) 0.5 X10'3 (0-0.9); MONOCYTES % (AUTO) 5.1 % (2-12); NEUTROPHILS # (AUTO) 8.4 X10'3 (1.8-7.7); NEUTROPHILS % (AUTO) 86.5 % (42-75); PLATELET COUNT 238 X10'3 (140-440); RED BLOOD COUNT 2.51 X10'6 (4.20-5.60); RED CELL DISTRIBUTION WIDTH 15.5 % (11.5-14.5); WHITE BLOOD COUNT 9.7 X10'3 (4.5-11.0)
[2018-03-30 03:04] LABS: ALANINE AMINOTRANSFERASE 14 U/L (12-78); ALBUMIN 1.3 G/DL (3.4-5.0); ALBUMIN/GLOBULIN RATIO 0.4 (1.1-1.5); ALKALINE PHOSPHATASE 72 IU/L (46-116); ANION GAP 6 (8-16); ASPARTATE AMINO TRANSFERASE 19 U/L (10-37); BILIRUBIN,TOTAL 0.4 MG/DL (0.1-1.0); BLOOD UREA NITROGEN 25 MG/DL (7-18); BUN/CREATININE RATIO 42.4 (6.6-38.0); CALCIUM 7.3 MG/DL (8.5-10.1); CHLORIDE 117 MMOL/L (99-107); CREATININE 0.59 MG/DL (0.40-0.90); GLUCOSE 153 MG/DL (70-104); MAGNESIUM 1.8 MG/DL (1.5-2.4); PHOSPHORUS 2.7 MG/DL (2.3-4.5); POTASSIUM 3.9 MMOL/L (3.5-5.1); SODIUM 147 MMOL/L (135-145); TOTAL CARBON DIOXIDE 24.1 MMOL/L (24-32); TOTAL PROTEIN 4.5 G/DL (6.4-8.2); eGFR > 90 ML/MIN
[2018-03-30] MEDS: fluconazole-Diflucan 200mg/NS 100 ML IV SCH (07:20)
[2018-03-30] MEDS: methylnaltrexone br 12mg/0.6ml inj***SubQ only SQ SCH (07:20)
[2018-03-30] MEDS: pantoprazole 40 MG vial IV SCH (07:20)
[2018-03-30] MEDS: enoxaparin 40mg/0.4ml syringe SUBCUT SCH (07:22)
[2018-03-30] MEDS ORDERED: racepinephrine 11.25mg/0.5ml nebule NEB PRN (07:55)
[2018-03-30] MEDS ORDERED: ipratropium/albuterol 3ml nebule NEB PRN (07:55)
[2018-03-30] MEDS: ipratropium/albuterol 3ml nebule NEB SCH ×3 (10:40→20:52)
[2018-03-30] MEDS: acetaminophen 325mg tablet PO PRN ×2 (11:09→17:54)
[2018-03-30] MEDS ORDERED: HYDROcodone/acetaminophen 5mg/325mg tablet PO PRN (20:25)
[2018-03-30] MEDS: fat emulsion IV 100 ML, MVI, adult No.4 with vit. K 10 ML, Trace element-5 inj. 1 ML in... IV SCH ×4 (20:25)
[2018-03-30] MEDS ORDERED: fat emulsion IV 100 ML, MVI, adult No.4 with vit. K 5 ML, Trace element-5 inj. 0.5 ML i... IV SCH ×4 (20:30)
[2018-03-30] MEDS: insulin glargine (Lantus) pen - multi-dose SQ SCH (20:50)
[2018-03-31] VITALS (16 sets, daily range): BP systolic 98–153; BP diastolic 48–86
[2018-03-31] MEDS: mineral oil/petrolatum ophthal oint EACHEYE SCH ×2 (02:00→07:18)
[2018-03-31] MEDS: insulin regular, human vial - multi-dose SQ SCH (02:36)
[2018-03-31 02:57] LABS: BASOPHILS % (AUTO) 0.3 % (0-1); EOSINOPHILS # (AUTO) 0.4 X10'3 (0-0.9); EOSINOPHILS % (AUTO) 2.9 % (0-6); HEMATOCRIT 24.9 % (35.0-45.0); HEMOGLOBIN 8.4 g/dl (12.0-16.0); LYMPHOCYTES # (AUTO) 0.7 X10'3 (1.1-4.8); LYMPHOCYTES % (AUTO) 4.6 % (21-51); MEAN CORPUSCULAR HEMOGLOBIN 31.4 PG (27.0-31.0); MEAN CORPUSCULAR HGB CONC 33.8 % (33.0-36.5); MEAN CORPUSCULAR VOLUME 92.9 FL (78-98); MEAN PLATELET VOLUME 8.5 FL (7.4-10.4); MONOCYTES # (AUTO) 0.8 X10'3 (0-0.9); MONOCYTES % (AUTO) 5.1 % (2-12); NEUTROPHILS % (AUTO) 87.1 % (42-75); PLATELET COUNT 332 X10'3 (140-440); RED BLOOD COUNT 2.68 X10'6 (4.20-5.60); RED CELL DISTRIBUTION WIDTH 15.6 % (11.5-14.5)
[2018-03-31 03:10] LABS: ALANINE AMINOTRANSFERASE 26 U/L (12-78); ALBUMIN 1.2 G/DL (3.4-5.0); ALBUMIN/GLOBULIN RATIO 0.3 (1.1-1.5); ALKALINE PHOSPHATASE 117 IU/L (46-116); ASPARTATE AMINO TRANSFERASE 61 U/L (10-37); BILIRUBIN,TOTAL 0.4 MG/DL (0.1-1.0); BLOOD UREA NITROGEN 24 MG/DL (7-18); BUN/CREATININE RATIO 39.3 (6.6-38.0); CALCIUM 7.2 MG/DL (8.5-10.1); CREATININE 0.61 MG/DL (0.40-0.90); GLUCOSE 109 MG/DL (70-104); MAGNESIUM 1.7 MG/DL (1.5-2.4); POTASSIUM 3.8 MMOL/L (3.5-5.1); PREALBUMIN 9.5 MG/DL (19-36); TOTAL CARBON DIOXIDE 22.8 MMOL/L (24-32); TOTAL PROTEIN 4.7 G/DL (6.4-8.2); TRIGLYCERIDES 95 MG/DL (20-135); eGFR > 90 ML/MIN
[2018-03-31 03:18] LABS: ANION GAP 7 (8-16); SODIUM 143 MMOL/L (135-145)
[2018-03-31 03:22] LABS: CHLORIDE 113 MMOL/L (99-107)
[2018-03-31] MEDS: ipratropium/albuterol 3ml nebule NEB SCH ×2 (03:29→08:30)
[2018-03-31] MEDS ORDERED: HYDROcodone/acetaminophen 5mg/325mg tablet PO ONE (03:30)
[2018-03-31 06:39] LABS: UREA NITROGEN 24HR,URINE 12.5 GM/24HR (7-20)
[2018-03-31] MEDS: pantoprazole 40 MG vial IV SCH (07:17)
[2018-03-31] MEDS: enoxaparin 40mg/0.4ml syringe SUBCUT SCH (07:18)
[2018-03-31] MEDS: HYDROcodone/acetaminophen 10/325mg tab PO PRN ×3 (07:18→14:46)
[2018-03-31] MEDS: piperacillin/tazo 4.5gm/100ml 100 ML IV SCH (07:18)
[2018-03-31] MEDS: fluconazole-Diflucan 200mg/NS 100 ML IV SCH (08:22)
[2018-03-31] MEDS ORDERED: HYDR-569 PO (12:16)
[2018-03-31] MEDS ORDERED: ENOX40DI11 SUBCUT (12:16)
== END 2018-03-31 15:20 | DRG 853 ==
LOC: ER 13:17 → ED HOLD 15:55 → ORTHO 4S 17:30 → PACU 21:00 → ICU 2S 03-24 00:13
PROVIDERS: ADMIT Internal Medicine; ATTEND Internal Medicine Critical Care Medicine
PROC: 5A1955Z Respiratory Ventilation, Greater than 96 Consecutive Hours (ICD-10-PCS; 2018-03-23)
PROC: 02HV33Z Insertion of Infusion Device into Superior Vena Cava, Percutaneous Approach (ICD-10-PCS; 2018-03-23)
PROC: B548ZZA Ultrasonography of Superior Vena Cava, Guidance (ICD-10-PCS; 2018-03-23)
PROC: 03HY32Z Insertion of Monitoring Device into Upper Artery, Percutaneous Approach (ICD-10-PCS; 2018-03-23)
PROC: 4A133B1 Monitoring of Arterial Pressure, Peripheral, Percutaneous Approach (ICD-10-PCS; 2018-03-23)
PROC: 4A133J1 Monitoring of Arterial Pulse, Peripheral, Percutaneous Approach (ICD-10-PCS; 2018-03-23)
PROC: 0DBN0ZZ Excision of Sigmoid Colon, Open Approach (ICD-10-PCS; principal; 2018-03-24)
PROC: 0DTG0ZZ Resection of Left Large Intestine, Open Approach (ICD-10-PCS; 2018-03-24)
PROC: 0D1L0Z4 Bypass Transverse Colon to Cutaneous, Open Approach (ICD-10-PCS; 2018-03-24)
PROC: 0W993ZZ Drainage of Right Pleural Cavity, Percutaneous Approach (ICD-10-PCS; 2018-03-25)
DX: A41.9 Sepsis, unspecified organism (principal); R65.21 Severe sepsis with septic shock; J96.00 Acute respiratory failure, unspecified whether with hypoxia or hypercapnia; K57.20 Diverticulitis of large intestine with perforation and abscess without bleeding; E46 Unspecified protein-calorie malnutrition; I10 Essential (primary) hypertension; F41.9 Anxiety disorder, unspecified; K44.9 Diaphragmatic hernia without obstruction or gangrene; Z90.710 Acquired absence of both cervix and uterus; Z90.49 Acquired absence of other specified parts of digestive tract; Z79.82 Long term (current) use of aspirin; Z79.899 Other long term (current) drug therapy; Z88.6 Allergy status to analgesic agent; Z68.34 Body mass index [BMI] 34.0-34.9, adult
CPT/HCPCS: 32555; 36415; 36600; 71045; 71250; 74176; 80047; 80048; 80053; 81001; 82803; 82948; 83605; 83735; 84100; 84132; 84134; 84145; 84478; 84560; 85018; 85025; 85610; 85730; 87040; 87070; 88307; 92616; 93005; 93970; 94002; 94003; 94640; 94760; 96365; 96367; 97110; 97162; 97530; 99291; A4421; A4649; A6212; A6213; A6253; A6257; A6258; A6449; A7000; C1758; C9113; J0153; J0694; J1450; J1650; J1815; J1956; J2001; J2250; J2270; J2405; J2543; J2704; J2765; J3010; J3480; J3490; J7030; J7060; J7120; P9045; Q9963

== ENCOUNTER 2018-10-27 08:15 | Inpatient (IN) | payer MEDICARE, MEDICAID | END 2018-11-14 16:41 | LOC: SUR 3N 11-03 19:17 → PAS IN 08:15 → PACU 11-08 14:24 → SUR 3N 12:45 | PROC: 0DSL0ZZ Reposition Transverse Colon, Open Approach (ICD-10-PCS; principal; 2018-10-27 10:22) | PROC: 0DN80ZZ Release Small Intestine, Open Approach (ICD-10-PCS; 2018-10-27 10:22) | PROC: 0WQF0ZZ Repair Abdominal Wall, Open Approach (ICD-10-PCS; 2018-10-27 10:22) | DX: Z43.3 Encounter for attention to colostomy (principal); T81.32XA Disruption of internal operation (surgical) wound, not elsewhere classified, initial encounter; Z93.3 Colostomy status; K43.2 Incisional hernia without obstruction or gangrene ==

== ENCOUNTER 2018-11-24 14:33 | Inpatient (IN) | payer MEDICARE, MEDICAID ==
[~2018-11-24] VITALS: Ht 162.6 cm; Wt 68.2 kg
[~2018-11-24 14:33] MED LIST changes: -CIPR-230 PO; -ESTR0.3T10 PO; -HYDR12.5 PO; -METR250T PO; -ONDA4TAB9 SL
[2018-11-24 16:51] LABS: BASOPHILS % (AUTO) 0.1 % (0-1); EOSINOPHILS % (AUTO) 0.1 % (0-6); HEMATOCRIT 30.5 % (35.0-45.0); HEMOGLOBIN 10.1 g/dl (12.0-16.0); LYMPHOCYTES # (AUTO) 1.2 X10'3 (1.1-4.8); MEAN CORPUSCULAR HEMOGLOBIN 29.4 PG (27.0-31.0); MEAN CORPUSCULAR HGB CONC 33.1 g/dL (33.0-36.5); MEAN CORPUSCULAR VOLUME 88.9 FL (78-98); MEAN PLATELET VOLUME 9.2 FL (7.4-10.4); MONOCYTES # (AUTO) 0.4 X10'3 (0-0.9); MONOCYTES % (AUTO) 1.7 % (2-12); NEUTROPHILS # (AUTO) 23.1 X10'3 (1.8-7.7); NEUTROPHILS % (AUTO) 93.1 % (42-75); PLATELET COUNT 125 X10'3 (140-440); RED BLOOD COUNT 3.43 X10'6 (4.20-5.60); RED CELL DISTRIBUTION WIDTH 15.6 % (11.5-14.5); WHITE BLOOD COUNT 24.8 X10'3 (4.5-11.0)
[2018-11-24 17:07] LABS: ALANINE AMINOTRANSFERASE 15 U/L (12-78); ALBUMIN 1.4 G/DL (3.4-5.0); ALBUMIN/GLOBULIN RATIO 0.3 (1.1-1.5); ALKALINE PHOSPHATASE 282 IU/L (46-116); ANION GAP 12 (8-16); ASPARTATE AMINO TRANSFERASE 41 U/L (10-37); BILIRUBIN,TOTAL 0.4 MG/DL (0.1-1.0); BLOOD UREA NITROGEN 13 MG/DL (7-18); BUN/CREATININE RATIO 17.8 (6.6-38.0); CALCIUM 7.4 MG/DL (8.5-10.1); CHLORIDE 106 MMOL/L (99-107); CREATININE 0.73 MG/DL (0.40-0.90); GLUCOSE 72 MG/DL (70-104); SODIUM 146 MMOL/L (135-145); TOTAL CARBON DIOXIDE 28.3 MMOL/L (24-32); TOTAL PROTEIN 5.6 G/DL (6.4-8.2); TROPONIN I 0.12 NG/ML (0.0-0.05); eGFR 76 ML/MIN
[2018-11-24 17:12] LABS: POTASSIUM 2.3 MMOL/L (3.5-5.1)
[2018-11-24] MEDS ORDERED: potassium chloride 10mEq CAPSULE.SA PO STA (17:42)
[2018-11-24] MEDS ORDERED: potassium chloride 10mEq ER tablet PO ONE (17:45)
[2018-11-24] MEDS ORDERED: potass W/LIDOcaine 10mEq/100ml 100 ML IV ONE ×2 (18:15)
[2018-11-24 18:36] LABS: TOTAL CELLS COUNTED 100
[2018-11-24 18:37] LABS: SMUDGE CELLS 1+
[2018-11-24 18:38] LABS: PLATELET ESTIMATE DECREASED; TARGET CELLS 2+
[2018-11-24 18:39] LABS: POLYCHROMASIA 1+; SPHEROCYTES 1+
[2018-11-24 18:40] LABS: HYPOCHROMASIA 1+
[2018-11-24] MEDS ORDERED: piperacillin/tazo 3.375gm/50ml 50 ML IV ONE (19:50)
--- NOTE | 2018-11-24 19:55 | NUR ---
HOSPITALIST AT BEDSIDE TO EVAL PT, PICTURES TAKEN OF ABD SURGICAL WOUND, WOUND VAC DRESSING REMOVED, WET TO DRY DRESSING DONE AND ABD PAD, IN AND OUT CATH DONE WITH STERILE TECHNIQUE, SAMPLE SENT TO LAB, PT HAD SMALL BOWEL MOVEMENT, INCONTINENT OF URINE, CHANGED DEPENDS, FAMILY AT BEDSIDE
[2018-11-24 20:01] LABS: CLARITY,URINE SLIGHTLY CLOUDY (Clear); COLOR,URINE YELLOW (Yellow); GLUCOSE, URINE NEGATIVE (Neg); KETONES,URINE NEGATIVE (Neg); LEUKOCYTE ESTERASE ,URINE TRACE (Neg); NITRITES, URINE NEGATIVE (Neg); OCCULT BLOOD,URINE NEGATIVE (Neg); PH,URINE 6.5 (4.8-8.0); PROTEIN,URINE NEGATIVE (Neg); UROBILINOGEN,URINE 0.2 E.U/dL (0.2-1.0)
[2018-11-24 20:13] LABS: UA COLLECTION TYPE OTHER
[2018-11-24 20:21] LABS: BACTERIA,URINE 4+ /HPF (Neg); RBC,URINE 0-2 /HPF (0-2); RENAL CELLS, URINE FEW /HPF; SQUAMOUS EPITHELIAL CELL,UR MODERATE /LPF (FEW)
[2018-11-24 20:22] LABS: TRANSITIONAL EPI CELLS,URINE FEW /HPF
[2018-11-24] MEDS ORDERED: PROC-8 PO (20:27)
[2018-11-24] MEDS ORDERED: MIRT15TA PO (20:27)
[2018-11-24] MEDS ORDERED: BUPR150T8 PO (20:27)
[2018-11-24] MEDS ORDERED: IBUP-1984 PO (20:27)
[2018-11-24] MEDS ORDERED: ondansetron/PF 4mg/2ml inj IV PRN (20:45)
[2018-11-24] MEDS ORDERED: mag hydrox/Alum hydrox/simeth 30ml oral suspension PO PRN (20:45)
[2018-11-24] MEDS ORDERED: magnesium hydroxide 30ml (MOM) UD suspension PO PRN (20:45)
[2018-11-24] MEDS ORDERED: ALPRAZolam 0.5mg tablet PO PRN (20:50)
--- NOTE | 2018-11-24 21:12 | NUR ---
PT IS RESTING QUIETLY ON GURNEY, NO COMPLAINTS AT THIS TIME, FAMILY WENT HOME AND WILL RETURN IN AM
--- NOTE | 2018-11-24 21:45 | NUR ---
REPORT CALLED TO JANI WOODRUFF
--- NOTE | 2018-11-24 21:47 | NUR ---
Patient in room ED 4. I have received report from RANJAN Jama and had the opportunity to ask questions and assume patient care.
[2018-11-24 21:50] VITALS: BP 153/59
[2018-11-24] MEDS: potassium cl 20mEq in 1/2 NS 1,000 ML IV SCH (22:22)
[2018-11-24] MEDS ORDERED: potassium Cl 40MEQ/NS 500ml 500 ML IV PRN (22:30)
[2018-11-24] MEDS ORDERED: potassium Cl 20 mEq SR tablet PO PRN (22:30)
[2018-11-24] MEDS: potassium Cl 40MEQ/NS 500ml 500 ML IV PRN (23:00)
[2018-11-25] VITALS (10 sets, daily range): BP systolic 114–150; BP diastolic 49–114
[2018-11-25] MEDS: piperacillin/tazo 3.375gm/50ml 50 ML IV SCH ×3 (04:23→20:06)
--- NOTE | 2018-11-25 06:00 | NUR ---
Problems reprioritized. Patient report given, questions answered & plan of care reviewed with RANJAN Vargas.
--- NOTE | 2018-11-25 06:05 | NUR ---
Patient in room ORTHO 4021. I have received report from JANI WOODRUFF and had the opportunity to ask questions and assume patient care.
[2018-11-25 06:12] LABS: BASOPHILS % (AUTO) 0.1 % (0-1); EOSINOPHILS # (AUTO) 0.1 X10'3 (0-0.9); EOSINOPHILS % (AUTO) 0.2 % (0-6); HEMATOCRIT 26.3 % (35.0-45.0); HEMOGLOBIN 8.8 g/dl (12.0-16.0); LYMPHOCYTES # (AUTO) 1.3 X10'3 (1.1-4.8); LYMPHOCYTES % (AUTO) 4.9 % (21-51); MEAN CORPUSCULAR HEMOGLOBIN 29.7 PG (27.0-31.0); MEAN CORPUSCULAR HGB CONC 33.5 g/dL (33.0-36.5); MEAN CORPUSCULAR VOLUME 88.6 FL (78-98); MEAN PLATELET VOLUME 9.5 FL (7.4-10.4); MONOCYTES # (AUTO) 0.6 X10'3 (0-0.9); MONOCYTES % (AUTO) 2.2 % (2-12); NEUTROPHILS # (AUTO) 24.4 X10'3 (1.8-7.7); NEUTROPHILS % (AUTO) 92.6 % (42-75); PLATELET COUNT 84 X10'3 (140-440); RED BLOOD COUNT 2.97 X10'6 (4.20-5.60); RED CELL DISTRIBUTION WIDTH 14.9 % (11.5-14.5)
[2018-11-25 06:38] LABS: WHITE BLOOD COUNT 26.4 X10'3 (4.5-11.0)
[2018-11-25] MEDS: potassium cl 20mEq in 1/2 NS 1,000 ML IV SCH ×3 (06:43→21:52)
[2018-11-25 06:46] LABS: HYPOCHROMASIA 1+; PLATELET ESTIMATE DECREASED; TARGET CELLS 2+; TOTAL CELLS COUNTED 100
[2018-11-25 06:47] LABS: SMUDGE CELLS 1+; TOXIC GRANULATION 1+
[2018-11-25 06:53] LABS: ALANINE AMINOTRANSFERASE 12 U/L (12-78); ALBUMIN 1.1 G/DL (3.4-5.0); ALBUMIN/GLOBULIN RATIO 0.3 (1.1-1.5); ALKALINE PHOSPHATASE 257 IU/L (46-116); ANION GAP 12 (8-16); ASPARTATE AMINO TRANSFERASE 37 U/L (10-37); BILIRUBIN,TOTAL 0.4 MG/DL (0.1-1.0); BLOOD UREA NITROGEN 14 MG/DL (7-18); BUN/CREATININE RATIO 18.9 (6.6-38.0); CALCIUM 6.8 MG/DL (8.5-10.1); CHLORIDE 109 MMOL/L (99-107); CREATININE 0.74 MG/DL (0.40-0.90); GLUCOSE 57 MG/DL (70-104); POTASSIUM 3.1 MMOL/L (3.5-5.1); SODIUM 145 MMOL/L (135-145); TOTAL CARBON DIOXIDE 23.9 MMOL/L (24-32); TOTAL PROTEIN 4.7 G/DL (6.4-8.2); eGFR 75 ML/MIN
--- NOTE | 2018-11-25 07:07 | NUR ---
PAGER ID: [phone] MESSAGE: ZARA [id number] RE; OSCAR [id number] CRITICAL WBC 26.4 ON ZOSYN 3.131 Q8
[2018-11-25] MEDS: buPROPion 75mg tablet PO SCH (08:00)
[2018-11-25] MEDS ORDERED: non-formulary drug (Aspirin (Aspir 81) 1 TABLET) PO SCH (08:00)
[2018-11-25] MEDS: hydroxychloroquine 200mg tablet PO SCH (08:00)
[2018-11-25] MEDS: aspirin 81mg tablet.DR PO SCH (08:00)
[2018-11-25] MEDS: heparin, porcine 5000 units/ml vial SQ SCH ×2 (08:00→20:00)
[2018-11-25] MEDS: mirtazapine 15mg tablet PO SCH (08:00)
[2018-11-25 08:17] LABS: TROPONIN I 0.14 NG/ML (0.0-0.05)
[2018-11-25] MEDS: potassium Cl 40MEQ/NS 500ml 500 ML IV PRN (08:25)
[2018-11-25] MEDS ORDERED: LIDOcaine 1%/PF 5ML 10 MG/ML VIAL ONE (08:50)
--- NOTE | 2018-11-25 08:51 | NUR ---
PATIENT GOING DOWN TO IR FOR PROCEDURE
--- NOTE | 2018-11-25 12:21 | NUR ---
Curt with wound care aware of orders for wound vac.
--- NOTE | 2018-11-25 12:40 | NUR ---
PATIENT TRANSFERRED TO SURGICAL PER ORDERS. Problems reprioritized. Patient report given, questions answered & plan of care reviewed with CODY WOODRUFF.
[2018-11-25] MEDS ORDERED: naproxen 500mg tablet PO PRN (13:00)
--- NOTE | 2018-11-25 15:32 | NUR ---
RECOMMEND: 1. Daily bathing with no rinse skin cleanser. 2. Cream/Lotion to be applied to skin after bathing. 3. Kayla care Q shift and prn soiling followed by with Barrier Cream. 4. Turn patient Q 1-2 hrs and reposition with pillows. 5. Float heels to offload pressure. 6. Hydrophylic foam to sacrum for skin protection. Change Q 5 days and prn soiling 7. Wound VAC to abd wounds. Settings 125mmHg, low, continuous. Routine dressing changes 8. Dietary consult Addendum: 11/25/18 at 1548 by Nimco Oliva RN Amended: Links added.
--- NOTE | 2018-11-25 15:48 | NUR ---
WOUND VAC EDUCATION PROVIDED BY WOUND CARE 1. Patient instructed to call the Wound Center or their Home Health Agency immediately if: * They notice a change in the color or amount of the fluid in the canister. * Their wound looks more red than usual or has a foul smell. * The skin around their wound looks reddened or irritated. * The dressing feels loose or appears to be loose. * They experience any increase or changes in their pain. * The alarm will not turn off. 2. Patient instructed that they should not be disconnected from suction for more than 2 hours at a time. * If they are not able to get the suction back on, they need to remove the dressing and take all of the foam out of the wound. * Then moisten sterile gauze with normal saline and place on/in the wound. * Change the dressing once a day until arrangements have been made to replace the wound vac dressing. 3. Patient instructed to turn the wound vac machine OFF and call 911 or go to the ED immediately if their canister fills rapidly with blood. 4. If any of these occur while in the hospital tell a nurse immediately. PRESSURE ULCER EDUCATION: DEFINITION: A pressure ulcer is an area of skin that breaks down when you stay in one position too long. The constant pressure against the skin reduces the blood flow to that area and the affected tissue dies. CAUSES: "Being bedridden or in a wheelchair "Fragile skin "Having a chronic condition, such as diabetes or vascular disease "Inability to move certain parts of your body without assistance "Older age "Incontinence of urine or stool SYMPTOMS: "A reddened area that DOES NOT turn white when pressed on - this can be the beginning of a pressure ulcer "A blister, deep sore or a crater - these can be advanced pressure ulcers FIRST AID: "Relieve the pressure on this area "Keep the area clean and dry "Call your primary doctor if you see any of the above symptoms "DO NOT massage the area "DO NOT use a donut shaped or ring shaped pillow- these actually interfere with the blood flow and cause complications PREVENTION: "Check for pressure ulcers everyday "Change position at least every two hours to relieve pressure "Use items that help relieve pressure- pillows, sheepskin, foam padding, and powders. "Keep skin clean and dry "Eat healthy well balanced meals "Exercise daily IF YOU SEE ANY OF THESE SYMPTOMS WHILE IN THE HOSPITAL - TELL YOUR NURSE IMMEDIATELY. IF YOU SEE ANY OF THESE SYMPTOMS WHILE AT HOME OR HAVE ANY QUESTIONS OR CONCERNS ABOUT PRESSURE ULCERS - CALL YOUR PRIMARY DOCTOR IMMEDIATELY. Addendum: 11/25/18 at 1548 by Nimco Oliva RN Amended: Links added.
--- NOTE | 2018-11-25 16:47 | NUR ---
Patient very confused states she had $100.00 bill in her bed. No Money found in her bed and when she came to the floor with her son and I did my patient assessment there was no money in the bed. Called patients [address] on his cell phone and his Suzy answered because he was driving. Per Suzy Leonie did not have any money this visit. Her last visit she had $100.00 but her son took it home with her purse. Patient was advised. Patient said " I guess there will be no food tomorrow then." I asked her what she meant and she stated" I won't have money for my dentures." I advised patient that he has her partial set here and her son stated nobody was buying new dentures. Patient said" whatever I guess I will eat mashed potatoes" Patient is confused so she has 3 rails up and the bed alarm is set.
--- NOTE | 2018-11-25 18:58 | NUR ---
Received report from Martina WOODRUFF pt is awake requesting mashed potatoes, on RA, in no apparent distress, call light and items of freq use within reach.
--- NOTE | 2018-11-25 19:00 | NUR ---
Problems reprioritized. Patient report given, questions answered & plan of care reviewed with Debby WOODRUFF.
[2018-11-25] MEDS: lactobacillus rhamnosus 10,000 MMU CELLS/CAPSULE PO SCH (20:06)
[2018-11-26 00:19] VITALS: BP 145/55
[2018-11-26] MEDS: ibuprofen 200mg tablet PO PRN (01:09)
[2018-11-26] MEDS: piperacillin/tazo 3.375gm/50ml 50 ML IV SCH ×3 (03:59→19:46)
[2018-11-26 06:14] LABS: ALANINE AMINOTRANSFERASE 12 U/L (12-78); ALBUMIN 1.1 G/DL (3.4-5.0); ALBUMIN/GLOBULIN RATIO 0.3 (1.1-1.5); ALKALINE PHOSPHATASE 282 IU/L (46-116); ANION GAP 8 (8-16); ASPARTATE AMINO TRANSFERASE 44 U/L (10-37); BILIRUBIN,TOTAL 0.4 MG/DL (0.1-1.0); BLOOD UREA NITROGEN 13 MG/DL (7-18); CALCIUM 6.8 MG/DL (8.5-10.1); CHLORIDE 110 MMOL/L (99-107); CREATININE 0.81 MG/DL (0.40-0.90); GLUCOSE 79 MG/DL (70-104); POTASSIUM 3.3 MMOL/L (3.5-5.1); SODIUM 146 MMOL/L (135-145); TOTAL CARBON DIOXIDE 27.7 MMOL/L (24-32); TOTAL PROTEIN 4.7 G/DL (6.4-8.2); eGFR 68 ML/MIN
[2018-11-26 06:26] LABS: BASOPHILS % (AUTO) 0 % (0-1); EOSINOPHILS # (AUTO) 0.1 X10'3 (0-0.9); EOSINOPHILS % (AUTO) 0.4 % (0-6); HEMATOCRIT 26.6 % (35.0-45.0); HEMOGLOBIN 8.9 g/dl (12.0-16.0); LYMPHOCYTES # (AUTO) 1.3 X10'3 (1.1-4.8); LYMPHOCYTES % (AUTO) 7.3 % (21-51); MEAN CORPUSCULAR HGB CONC 33.6 g/dL (33.0-36.5); MEAN CORPUSCULAR VOLUME 89.1 FL (78-98); MEAN PLATELET VOLUME 9.7 FL (7.4-10.4); MONOCYTES # (AUTO) 0.3 X10'3 (0-0.9); MONOCYTES % (AUTO) 1.6 % (2-12); NEUTROPHILS # (AUTO) 16.4 X10'3 (1.8-7.7); NEUTROPHILS % (AUTO) 90.7 % (42-75); PLATELET COUNT 67 X10'3 (140-440); RED BLOOD COUNT 2.98 X10'6 (4.20-5.60); RED CELL DISTRIBUTION WIDTH 15.5 % (11.5-14.5); WHITE BLOOD COUNT 18.1 X10'3 (4.5-11.0)
--- NOTE | 2018-11-26 06:33 | NUR ---
Problems reprioritized. Patient report given, questions answered & plan of care reviewed with Romelia WOODRUFF.
[2018-11-26 07:00] VITALS: BP 143/77
[2018-11-26] MEDS: heparin, porcine 5000 units/ml vial SQ SCH ×2 (07:26→19:34)
[2018-11-26] MEDS: lactobacillus rhamnosus 10,000 MMU CELLS/CAPSULE PO SCH ×2 (07:26→19:46)
[2018-11-26] MEDS: aspirin 81mg tablet.DR PO SCH (07:26)
[2018-11-26] MEDS: buPROPion 75mg tablet PO SCH (07:27)
[2018-11-26] MEDS: mirtazapine 15mg tablet PO SCH (07:27)
[2018-11-26] MEDS: hydroxychloroquine 200mg tablet PO SCH (07:27)
[2018-11-26] MEDS: potassium cl 20mEq in 1/2 NS 1,000 ML IV SCH (07:30)
[2018-11-26 07:33] LABS: ANISOCYTOSIS 1+; NUCLEATED RED BLOOD CELLS 1 /100WBC (0-0); PLATELET ESTIMATE DECREASED; POLYCHROMASIA FEW; ROULEAUX 1+; TOTAL CELLS COUNTED 100; TOXIC GRANULATION 3+
[2018-11-26 07:34] LABS: TARGET CELLS 1+
[2018-11-26] MEDS: furosemide 20 MG/2 ML vial IV SCH ×2 (08:52→19:46)
[2018-11-26] MEDS: potassium Cl 20 mEq SR tablet PO PRN ×3 (08:52→22:45)
[2018-11-26 11:00] VITALS: BP 110/60
--- NOTE | 2018-11-26 12:53 | NUR ---
Wound consult re: open surgical wounds to abd/wound VAC. Attempted visit with pt at bedside however pt sleeping and did not wake for RD visit. Written protein education with RD contact information left at patient's bedside. Pt on a mechanical soft diet with documented PO intake averaging 50% likely meeting nutrient needs for geriatric age; alternative write in menu left at patient's bedside to provide additional meal options that contain protein. Will continue to follow. Recommendations: 1) Continue with [facility] soft diet 2) Monitor need for ONS 3) Wt per rx Addendum: 11/26/18 at [address] Amended: Links added.
--- NOTE | 2018-11-26 12:54 | NUR ---
Wound consult re: open surgical wounds to abd/wound VAC. Attempted visit with pt at bedside however pt sleeping and did not wake for RD visit. Written protein education with RD contact information left at patient's bedside. Pt on a mechanical soft diet with documented PO intake averaging 50% likely meeting nutrient needs for geriatric age; alternative write in menu left at patient's bedside to provide additional meal options that contain protein. Will continue to follow. Recommendations: 1) Continue with [place] soft diet 2) Monitor need for ONS 3) Wt per rx Addendum: 11/26/18 at [address] Amended: Links added.
[2018-11-26 18:00] VITALS: BP 144/76
--- NOTE | 2018-11-26 18:37 | NUR ---
Problems reprioritized. Patient report given, questions answered & plan of care reviewed with Gabriella WOODRUFF.
--- NOTE | 2018-11-26 18:40 | NUR ---
Patient in room ANEL 350. I have received report from Romelia WOODRUFF and had the opportunity to ask questions and assume patient care. Patient resting comfortably, respirations even and unlabored, bed alarm on.
--- NOTE | 2018-11-26 19:33 | NUR ---
Patient platelet count 67. Holding [address] dose [address] per [address] Flores.
--- NOTE | 2018-11-26 22:45 | NUR ---
Pt refused dose 3/3 of potassium replacement, stated "pill is too big". Will assess potassium level with Am draw.
[2018-11-27] VITALS: BP 120/56
[2018-11-27] MEDS: piperacillin/tazo 3.375gm/50ml 50 ML IV SCH ×3 (03:54→19:23)
--- NOTE | 2018-11-27 06:10 | NUR ---
Problems reprioritized. Patient report given, questions answered & plan of care reviewed with Romelia WOODRUFF.
--- NOTE | 2018-11-27 06:53 | NUR ---
Patient in room ANEL 350. I have received report from Gabriella WOODRUFF and had the opportunity to ask questions and assume patient care.
[2018-11-27 06:54] LABS: BASOPHILS % (AUTO) 0.1 % (0-1); EOSINOPHILS % (AUTO) 0.1 % (0-6); HEMATOCRIT 25.5 % (35.0-45.0); HEMOGLOBIN 8.5 g/dl (12.0-16.0); LYMPHOCYTES % (AUTO) 12.9 % (21-51); MEAN CORPUSCULAR HEMOGLOBIN 29.9 PG (27.0-31.0); MEAN CORPUSCULAR HGB CONC 33.4 g/dL (33.0-36.5); MEAN CORPUSCULAR VOLUME 89.3 FL (78-98); MEAN PLATELET VOLUME 9.1 FL (7.4-10.4); MONOCYTES # (AUTO) 0.2 X10'3 (0-0.9); MONOCYTES % (AUTO) 1.5 % (2-12); NEUTROPHILS # (AUTO) 13.4 X10'3 (1.8-7.7); NEUTROPHILS % (AUTO) 85.4 % (42-75); PLATELET COUNT 62 X10'3 (140-440); RED BLOOD COUNT 2.86 X10'6 (4.20-5.60); RED CELL DISTRIBUTION WIDTH 15.8 % (11.5-14.5); WHITE BLOOD COUNT 15.6 X10'3 (4.5-11.0)
[2018-11-27 06:58] LABS: ALANINE AMINOTRANSFERASE 14 U/L (12-78); ALBUMIN/GLOBULIN RATIO 0.3 (1.1-1.5); ALKALINE PHOSPHATASE 305 IU/L (46-116); ANION GAP 8 (8-16); ASPARTATE AMINO TRANSFERASE 50 U/L (10-37); BILIRUBIN,TOTAL 0.3 MG/DL (0.1-1.0); BLOOD UREA NITROGEN 11 MG/DL (7-18); BUN/CREATININE RATIO 15.7 (6.6-38.0); CALCIUM 6.7 MG/DL (8.5-10.1); CHLORIDE 109 MMOL/L (99-107); GLUCOSE 67 MG/DL (70-104); SODIUM 145 MMOL/L (135-145); TOTAL CARBON DIOXIDE 28.5 MMOL/L (24-32); TOTAL PROTEIN 4.5 G/DL (6.4-8.2); eGFR 80 ML/MIN
[2018-11-27 07:00] LABS: POTASSIUM 2.6 MMOL/L (3.5-5.1)
--- NOTE | 2018-11-27 07:15 | NUR ---
Informed Dr. Lees of pt's critical K 2.6 pt has protocol ordered at this time.
[2018-11-27 07:54] LABS: NUCLEATED RED BLOOD CELLS 1 /100WBC (0-0); TOTAL CELLS COUNTED 100
[2018-11-27 07:55] LABS: ANISOCYTOSIS 1+; PLATELET ESTIMATE DECREASED; POLYCHROMASIA FEW; TARGET CELLS 1+; TOXIC GRANULATION 2+
[2018-11-27 08:00] VITALS: BP 130/60
[2018-11-27] MEDS: lactobacillus rhamnosus 10,000 MMU CELLS/CAPSULE PO SCH ×2 (08:00→19:35)
[2018-11-27] MEDS: mirtazapine 15mg tablet PO SCH (08:00)
[2018-11-27] MEDS: heparin, porcine 5000 units/ml vial SQ SCH ×2 (08:00→19:34)
[2018-11-27] MEDS: aspirin 81mg tablet.DR PO SCH (08:00)
[2018-11-27] MEDS: buPROPion 75mg tablet PO SCH (08:00)
[2018-11-27] MEDS: hydroxychloroquine 200mg tablet PO SCH (08:00)
[2018-11-27] MEDS: furosemide 20 MG/2 ML vial IV SCH ×2 (08:33→19:23)
[2018-11-27] MEDS: LIDOcaine 1% 30ml vial 5 ML in potassium Cl 40MEQ/NS 500ml 500 ML IV PRN ×2 (08:49→13:29)
--- NOTE | 2018-11-27 08:54 | NUR ---
Rapid called at 0840 pt unarousable to sternal rub. VS 118/59, 87, 76% RA O2 placed at 6L via N/C pt O2Sat came up to 97%. 0845 VS 159/86, 89, 98% 6L via N/C. Pt BG 75. Pt began to talk sentences that the Rapid team could not understand, Pt opened eyes for them. The Rapid team stated she was fine. DR. Lees called and informed of the rapid being called and what the Rapid team stated. stated he will be over to see pt.
--- NOTE | 2018-11-27 09:00 | NUR ---
Dr Lees in to see patient. aware of pt's LOC.
--- NOTE | 2018-11-27 09:46 | NUR ---
Dr. Lees stated discharge routine/orders on pt's chart to be omitted at this time. RANJAN León notified.
[2018-11-27 11:00] VITALS: BP 134/55
--- NOTE | 2018-11-27 12:52 | NUR ---
DR Lees in to see pt and son. informed son on pts condition. MD wants to wait 24hours to see if pt will improve if not then they will discuss other options.
[2018-11-27 18:00] VITALS: BP 149/63
--- NOTE | 2018-11-27 18:30 | NUR ---
Patient in room ANEL 350. I have received report from Romelia WOODRUFF and had the opportunity to ask questions and assume patient care. Pt resting comfortably on 2L nasal cannula.
--- NOTE | 2018-11-27 18:37 | NUR ---
Problems reprioritized. Patient report given, questions answered & plan of care reviewed with Gabriella WOODRUFF.
[2018-11-28] VITALS: BP 126/51
[2018-11-28] MEDS: piperacillin/tazo 3.375gm/50ml 50 ML IV SCH ×3 (03:41→22:23)
--- NOTE | 2018-11-28 06:32 | NUR ---
Problems reprioritized. Patient report given, questions answered & plan of care reviewed with Pricilla WOODRUFF.
[2018-11-28 06:39] LABS: ALANINE AMINOTRANSFERASE 15 U/L (12-78); ALBUMIN 1.2 G/DL (3.4-5.0); ALBUMIN/GLOBULIN RATIO 0.3 (1.1-1.5); ALKALINE PHOSPHATASE 440 IU/L (46-116); ANION GAP 11 (8-16); ASPARTATE AMINO TRANSFERASE 66 U/L (10-37); BILIRUBIN,TOTAL 0.4 MG/DL (0.1-1.0); BLOOD UREA NITROGEN 10 MG/DL (7-18); BUN/CREATININE RATIO 13.3 (6.6-38.0); CALCIUM 6.8 MG/DL (8.5-10.1); CHLORIDE 110 MMOL/L (99-107); CREATININE 0.75 MG/DL (0.40-0.90); GLUCOSE 51 MG/DL (70-104); SODIUM 148 MMOL/L (135-145); TOTAL CARBON DIOXIDE 27.1 MMOL/L (24-32); TOTAL PROTEIN 5.1 G/DL (6.4-8.2); eGFR 74 ML/MIN
[2018-11-28 06:58] LABS: POTASSIUM 2.8 MMOL/L (3.5-5.1)
[2018-11-28 07:17] LABS: BASOPHILS % (AUTO) 0.1 % (0-1); HEMOGLOBIN 9.5 g/dl (12.0-16.0)
[2018-11-28 07:22] LABS: EOSINOPHILS % (AUTO) 0.2 % (0-6); HEMATOCRIT 27.8 % (35.0-45.0); LYMPHOCYTES # (AUTO) 2.9 X10'3 (1.1-4.8); LYMPHOCYTES % (AUTO) 17.9 % (21-51); MEAN CORPUSCULAR HGB CONC 34.2 g/dL (33.0-36.5); MEAN CORPUSCULAR VOLUME 87.8 FL (78-98); MEAN PLATELET VOLUME 9.2 FL (7.4-10.4); MONOCYTES # (AUTO) 0.4 X10'3 (0-0.9); MONOCYTES % (AUTO) 2.5 % (2-12); NEUTROPHILS # (AUTO) 12.9 X10'3 (1.8-7.7); NEUTROPHILS % (AUTO) 79.3 % (42-75); PLATELET COUNT 88 X10'3 (140-440); RED BLOOD COUNT 3.17 X10'6 (4.20-5.60); RED CELL DISTRIBUTION WIDTH 15.5 % (11.5-14.5); WHITE BLOOD COUNT 16.2 X10'3 (4.5-11.0)
[2018-11-28 07:40] VITALS: BP 142/63
[2018-11-28] MEDS: lactobacillus rhamnosus 10,000 MMU CELLS/CAPSULE PO SCH ×2 (07:54→20:00)
[2018-11-28] MEDS: aspirin 81mg tablet.DR PO SCH (07:54)
[2018-11-28] MEDS: buPROPion 75mg tablet PO SCH (07:54)
[2018-11-28] MEDS: mirtazapine 15mg tablet PO SCH (07:55)
[2018-11-28] MEDS: hydroxychloroquine 200mg tablet PO SCH (07:55)
[2018-11-28] MEDS: heparin, porcine 5000 units/ml vial SQ SCH ×2 (07:57→20:00)
[2018-11-28] MEDS: furosemide 20 MG/2 ML vial IV SCH ×2 (07:58→22:25)
[2018-11-28] MEDS: LIDOcaine 1% 30ml vial 5 ML in potassium Cl 40MEQ/NS 500ml 500 ML IV PRN ×2 (10:10→15:14)
[2018-11-28] MEDS ORDERED: dextrose 50%-water 50ml dispensing syringe IV ONE (11:09)
[2018-11-28 11:30] VITALS: BP 165/90
--- NOTE | 2018-11-28 11:30 | NUR ---
Rapid response called, paged. Patient unresponsive, saturation 73% on room air. Oxygen mask applied with 10L patient increased to 100% O2 Sat. Blood sugar level obtained it was 47. Dextrose 50% given via IV recheck blood sugar level 113. Patient slightly more responsive. Pupils equal bilaterally, strength equal bilaterally. Patient now 94% on 5L NC. blood pressure and heart rate stable. Will continue to monitor. Family at bedside. paged again to come speak with family and see patient. Will continue to monitor
[2018-11-28 11:32] VITALS: BP 159/79
[2018-11-28] MEDS: dextrose 5%-1/2 normal saline 1,000 ML IV SCH (11:33)
[2018-11-28 12:27] VITALS: BP 176/76
--- NOTE | 2018-11-28 15:00 | NUR ---
Patient refused EEG. notified.
--- NOTE | 2018-11-28 18:03 | NUR ---
Problems reprioritized. Patient report given, questions answered & plan of care reviewed with RANJAN Webb.
--- NOTE | 2018-11-28 19:20 | NUR ---
Patient in room ANEL 358. I have received report from Pricilla WOODRUFF and had the opportunity to ask questions and assume patient care.
[2018-11-29] VITALS: BP 155/62
[2018-11-29] MEDS: dextrose 5%-1/2 normal saline 1,000 ML IV SCH ×3 (00:50→20:09)
[2018-11-29] MEDS: piperacillin/tazo 3.375gm/50ml 50 ML IV SCH ×3 (04:23→19:55)
[2018-11-29 05:56] LABS: HEMATOCRIT 25.1 % (35.0-45.0); HEMOGLOBIN 8.6 g/dl (12.0-16.0); LYMPHOCYTES # (AUTO) 0.9 X10'3 (1.1-4.8); MEAN CORPUSCULAR HEMOGLOBIN 29.2 PG (27.0-31.0); MEAN CORPUSCULAR HGB CONC 34.1 g/dL (33.0-36.5); MEAN CORPUSCULAR VOLUME 85.5 FL (78-98); MEAN PLATELET VOLUME 8.5 FL (7.4-10.4); MONOCYTES # (AUTO) 0.6 X10'3 (0-0.9); PLATELET COUNT 89 X10'3 (140-440); RED BLOOD COUNT 2.94 X10'6 (4.20-5.60); RED CELL DISTRIBUTION WIDTH 16.1 % (11.5-14.5); WHITE BLOOD COUNT 11.4 X10'3 (4.5-11.0)
[2018-11-29 06:00] LABS: ALANINE AMINOTRANSFERASE 20 U/L (12-78); ALBUMIN 1.3 G/DL (3.4-5.0); ALBUMIN/GLOBULIN RATIO 0.3 (1.1-1.5); ALKALINE PHOSPHATASE 515 IU/L (46-116); ANION GAP 8 (8-16); ASPARTATE AMINO TRANSFERASE 77 U/L (10-37); BILIRUBIN,TOTAL 0.4 MG/DL (0.1-1.0); BLOOD UREA NITROGEN 9 MG/DL (7-18); BUN/CREATININE RATIO 9.2 (6.6-38.0); CALCIUM 6.7 MG/DL (8.5-10.1); CHLORIDE 109 MMOL/L (99-107); CREATININE 0.98 MG/DL (0.40-0.90); GLUCOSE 82 MG/DL (70-104); SODIUM 145 MMOL/L (135-145); TOTAL CARBON DIOXIDE 28.2 MMOL/L (24-32); TOTAL PROTEIN 5.3 G/DL (6.4-8.2); eGFR 54 ML/MIN
[2018-11-29 06:22] LABS: NEUTROPHILS % (AUTO) 87.2 % (42-75)
[2018-11-29 06:23] LABS: BASOPHILS % (AUTO) 0.1 % (0-1); EOSINOPHILS % (AUTO) 0.3 % (0-6); LYMPHOCYTES % (AUTO) 7.5 % (21-51); MONOCYTES % (AUTO) 4.9 % (2-12); POTASSIUM 2.5 MMOL/L (3.5-5.1)
--- NOTE | 2018-11-29 06:36 | NUR ---
Problems reprioritized. Patient report given, questions answered & plan of care reviewed with Pricilla WOODRUFF. Pt was being attend to by the aide at the time of report. She was resting on her back with no signs of distress.
[2018-11-29 07:12] LABS: ANISOCYTOSIS 1+; HYPOCHROMASIA 1+; LARGE PLATELETS FEW; MICROCYTOSIS FEW; PLATELET ESTIMATE DECREASED; TARGET CELLS 1+
[2018-11-29 07:35] VITALS: BP 122/85
[2018-11-29] MEDS: mirtazapine 15mg tablet PO SCH (08:00)
[2018-11-29] MEDS: heparin, porcine 5000 units/ml vial SQ SCH ×2 (08:00→19:19)
[2018-11-29] MEDS: aspirin 81mg tablet.DR PO SCH (08:00)
[2018-11-29] MEDS: furosemide 20 MG/2 ML vial IV SCH ×2 (08:00→19:54)
[2018-11-29] MEDS: lactobacillus rhamnosus 10,000 MMU CELLS/CAPSULE PO SCH ×2 (08:00→19:56)
[2018-11-29] MEDS: buPROPion 75mg tablet PO SCH (08:00)
[2018-11-29] MEDS: hydroxychloroquine 200mg tablet PO SCH (08:00)
[2018-11-29] MEDS ORDERED: LORazepam 2 mg/ml vial IV ONE (08:55)
[2018-11-29] MEDS ORDERED: potassium Cl oral solution 20 MEQ/15 ML PO ONE (09:00)
[2018-11-29 11:30] VITALS: BP 121/73
[2018-11-29] MEDS: LIDOcaine 1% 30ml vial 5 ML in potassium Cl 40MEQ/NS 500ml 500 ML IV PRN ×2 (11:41→16:17)
[2018-11-29] MEDS ORDERED: LORazepam 2 mg/ml vial IV PRN (11:55)
--- NOTE | 2018-11-29 14:18 | NUR ---
Reassessment: Pt with 220 cc's reported out of abdominal fluid collection drain per MD progress notes. Per physical assessment pt is confused, A/O x1, agitated, restless, anxious, and resistive to care. Noted that pt refusing most medications today per med list. Documented PO intake with average of 25% on regular/mech soft diet not meeting nutrient needs. MD notes state pt to receive protein supplementation d/t low BG levels however one hasn't been ordered yet, recommend Ensure Enlive to provide additional protein and kcal d/t low PO intake and increased protein needs with wound VAC. LBM 11/28. Will continue to follow. Recommendations: 1) Continue with mech soft diet 2) Ensure Enlive TID 3) Wt per rx Addendum: 11/29/18 at [address] Amended: Links added.
--- NOTE | 2018-11-29 18:38 | NUR ---
Received report from RANJAN Pleitez. Patient is awake and alert on 2L NC, in no apparent distress. Call light and items of frequent use within reach. Will continue to monitor.
--- NOTE | 2018-11-29 18:39 | NUR ---
Problems reprioritized. Patient report given, questions answered & plan of care reviewed with RANJAN Avery.
[2018-11-29 20:00] VITALS: BP 145/77
[2018-11-29] MEDS ORDERED: QUEtiapine 25mg tablet PO ONE (21:00)
[2018-11-30] VITALS: BP 128/79
[2018-11-30] MEDS ORDERED: acetaminophen 650mg rectal suppository RC PRN (00:15)
--- NOTE | 2018-11-30 05:35 | NUR ---
NG tube placed (18 Fr) per MD Nabeel order. Clamped now.
[2018-11-30] MEDS: piperacillin/tazo 3.375gm/50ml 50 ML IV SCH ×3 (05:54→20:08)
--- NOTE | 2018-11-30 06:20 | NUR ---
Problems reprioritized. Patient report given, questions answered & plan of care reviewed with RANJAN Pyle.
--- NOTE | 2018-11-30 06:54 | NUR ---
Patient in room ANEL 358. I have received report from Gena WOODRUFF and had the opportunity to ask questions and assume patient care.
[2018-11-30 07:00] VITALS: BP 117/87
--- NOTE | 2018-11-30 07:00 | NUR ---
Left a voicemail message to the clinical dietitian this am to call me in regards to this patient
--- NOTE | 2018-11-30 07:14 | NUR ---
Patient in room ANEL 358A. I have received report from Arabella and had the opportunity to ask questions and assume patient care.
[2018-11-30 07:16] VITALS: BP 137/70
[2018-11-30] MEDS: heparin, porcine 5000 units/ml vial SQ SCH (07:29)
[2018-11-30 08:08] LABS: POTASSIUM 3.1 MMOL/L (3.5-5.1)
--- NOTE | 2018-11-30 08:36 | NUR ---
Paged Dr. Roberts regarding K of 3.1 today. The current PRN KCL order is for 3.0 or less only
[2018-11-30] MEDS ORDERED: potassium Cl 40MEQ/NS 500ml 500 ML IV PRN ×3 (08:50→17:25)
[2018-11-30] MEDS ORDERED: potassium Cl 20 mEq SR tablet PO PRN ×4 (08:50→17:25)
--- NOTE | 2018-11-30 09:09 | NUR ---
TF consult re: pt with poor PO intake. Noted that pt ate 0% on 11/27 with average intake of 25% 11/28-11/29. Pt previously with a mech soft diet however has not has a BSS, will consult LIBERAL ARTS TEACHER to determine if poor PO intake was r/t difficulty chewing/swallowing. Per RN notes pt with an NG tube. TF calculations below to meet 100% of patient's estimated nutrient needs with increased protein needs for wound healing. Will continue to follow. Recommendations: 1) Continuous TF of Jevity 1.2 to begin at 20 mL/hr and advance by 20 mL as tolerated q 8 hours to goal rate of 65 mL/hr to provide: total volume of 1560 mL/day, 1872 kcal, 87 g protein, and 1259 water 2) Water flushes of 105 mL q 4 hours 3) Prealbumin q / 4) Daily wt 5) Advance PO diet as medically indicated with LIBERAL ARTS TEACHER recs pending BSS Addendum: 11/30/18 at [address] Amended: Links added.
[2018-11-30] MEDS: furosemide 20 MG/2 ML vial IV SCH ×2 (09:41→20:23)
[2018-11-30] MEDS: hydroxychloroquine 200mg tablet PO SCH (09:45)
[2018-11-30] MEDS: aspirin 81mg tablet.DR PO SCH (09:45)
[2018-11-30] MEDS: lactobacillus rhamnosus 10,000 MMU CELLS/CAPSULE PO SCH ×2 (09:45→20:25)
[2018-11-30] MEDS: mirtazapine 15mg tablet PO SCH (09:46)
[2018-11-30] MEDS: buPROPion 75mg tablet PO SCH (09:46)
[2018-11-30 09:57] LABS: MAGNESIUM 1.1 MG/DL (1.5-2.4)
--- NOTE | 2018-11-30 10:19 | NUR ---
Patient's NGT has been checked twice since the beginning of my shift, positive gurgling sound noted upon auscultation. Will wait for KUB of abdomen to be done prior to start of tube feeding
[2018-11-30] MEDS: LIDOcaine 1% 30ml vial 5 ML in potassium Cl 40MEQ/NS 500ml 500 ML IV PRN (11:04)
--- NOTE | 2018-11-30 12:00 | NUR ---
Patient refused vital signs at this time
--- NOTE | 2018-11-30 13:03 | NUR ---
NGT removed per Dr. Roberts. Dr. Roberts okayed Speech Therapist recommendation of mechanical soft diet. Patient tolerated procedure well
[2018-11-30 13:10] VITALS: BP 124/72
--- NOTE | 2018-11-30 13:30 | NUR ---
Mechanical soft diet served. Offered feeding patient but patient insisted she wanted to try feeding herself. Explained to patient that we want to help her since she still has hand tremors. Patient's son at the bedside aware of this. I was able to help the patient with the first couple of bites, able to swallow the food without difficulty. FARM REPORTER at bedside will continue feeding the patient
--- NOTE | 2018-11-30 15:00 | NUR ---
Reassessment: Pt passed BSS today, TF was d/c'ed and diet was advanced to mec soft with thin liquids d/t difficulty chewing. RECREATION THERAPY AIDE recs assistance with feeding which has been ordered per RN. Will continue to follow. Recommendations: 1) Continue [facility] soft diet with thin liquids per RECREATION THERAPY AIDE 2) Monitor need for ONS 3) Wt per rx Addendum: 11/30/18 at [address] Amended: Links added.
--- NOTE | 2018-11-30 18:38 | NUR ---
Problems reprioritized. Patient report given, questions answered & plan of care reviewed with Barbie WOODRUFF.
[2018-11-30 19:00] VITALS: BP 130/69
--- NOTE | 2018-11-30 19:35 | NUR ---
Received call from Dr. Roberts, received order to make patient NPO at midnight for possible PEG tube placement based on trademark affixer recommendation. Also received order to increase Xanax 0.5 mg to three times daily as needed for anxiety. Also received order to discontinue heparin because of low platelets and repeatedly holding dose and possible surgery tomorrow. Will continue to monitor.
[2018-11-30] MEDS ORDERED: ALPRAZolam 0.5mg tablet PO PRN (19:40)
[2018-11-30] MEDS: dextrose 5%-1/2 normal saline 1,000 ML IV SCH (20:06)
[2018-11-30 20:16] VITALS: BP 138/59
[2018-11-30] MEDS: ibuprofen 200mg tablet PO PRN (20:25)
[2018-11-30] MEDS ORDERED: magnesium Cl slow-release 64mg tablet PO PRN (23:40)
[2018-11-30] MEDS ORDERED: magnesium 2GM in 50ml NS 50 ML IV PRN (23:40)
[2018-12-01] VITALS: BP 126/44
[2018-12-01] MEDS: dextrose 5%-1/2 normal saline 1,000 ML IV SCH (01:41)
[2018-12-01] MEDS: magnesium 4gm in 100ml NS 100 ML IV PRN ×2 (01:44→01:52)
[2018-12-01] MEDS: piperacillin/tazo 3.375gm/50ml 50 ML IV SCH ×3 (05:49→21:04)
[2018-12-01 06:00] LABS: BASOPHILS % (AUTO) 0.2 % (0-1); EOSINOPHILS # (AUTO) 0.1 X10'3 (0-0.9); EOSINOPHILS % (AUTO) 2.6 % (0-6); HEMATOCRIT 22.4 % (35.0-45.0); HEMOGLOBIN 7.6 g/dl (12.0-16.0); LYMPHOCYTES # (AUTO) 0.5 X10'3 (1.1-4.8); LYMPHOCYTES % (AUTO) 10.4 % (21-51); MEAN CORPUSCULAR HEMOGLOBIN 29.1 PG (27.0-31.0); MEAN CORPUSCULAR HGB CONC 33.9 g/dL (33.0-36.5); MONOCYTES # (AUTO) 0.3 X10'3 (0-0.9); MONOCYTES % (AUTO) 5.5 % (2-12); NEUTROPHILS # (AUTO) 4.2 X10'3 (1.8-7.7); NEUTROPHILS % (AUTO) 81.3 % (42-75); PLATELET COUNT 105 X10'3 (140-440); RED BLOOD COUNT 2.61 X10'6 (4.20-5.60); RED CELL DISTRIBUTION WIDTH 15.8 % (11.5-14.5); WHITE BLOOD COUNT 5.2 X10'3 (4.5-11.0)
--- NOTE | 2018-12-01 06:18 | NUR ---
Patient in room ANEL 358. I have received report from RANJAN Silva and had the opportunity to ask questions and assume patient care.
[2018-12-01 06:20] LABS: INR 1.3 INR; PARTIAL THROMBOPLASTIN TIME 33 SECONDS (22-32); PROTHROMBIN TIME 13.1 SECONDS (9.0-12.0)
--- NOTE | 2018-12-01 06:30 | NUR ---
Problems reprioritized. Patient report given, questions answered & plan of care reviewed with Hazel RN. Patient resting with sitter at bedside.
[2018-12-01 07:00] VITALS: BP 116/86
[2018-12-01 07:33] LABS: HYPOCHROMASIA 1+; PLATELET ESTIMATE DECREASED; POLYCHROMASIA FEW; TOTAL CELLS COUNTED 100
[2018-12-01 07:34] LABS: SCHISTOCYTES FEW
[2018-12-01] MEDS: aspirin 81mg tablet.DR PO SCH (07:55)
[2018-12-01] MEDS: lactobacillus rhamnosus 10,000 MMU CELLS/CAPSULE PO SCH ×2 (07:55→21:08)
[2018-12-01] MEDS: hydroxychloroquine 200mg tablet PO SCH (07:56)
[2018-12-01] MEDS: furosemide 20 MG/2 ML vial IV SCH (08:06)
[2018-12-01 09:27] LABS: ALBUMIN 1.1 G/DL (3.4-5.0); ANION GAP 8 (8-16); BLOOD UREA NITROGEN 7 MG/DL (7-18); BUN/CREATININE RATIO 7.2 (6.6-38.0); CALCIUM 6.6 MG/DL (8.5-10.1); CHLORIDE 109 MMOL/L (99-107); CREATININE 0.97 MG/DL (0.40-0.90); GLUCOSE 72 MG/DL (70-104); MAGNESIUM 2.4 MG/DL (1.5-2.4); PREALBUMIN 7.7 MG/DL (19-36); SODIUM 145 MMOL/L (135-145); eGFR 55 ML/MIN
[2018-12-01 09:42] LABS: POTASSIUM 2.3 MMOL/L (3.5-5.1)
[2018-12-01 11:00] VITALS: BP 118/48
--- NOTE | 2018-12-01 12:03 | NUR ---
Tranak placed by student nurse Kinjal [employer]all"[employer]
[2018-12-01] MEDS: potassium Cl 40MEQ/NS 500ml 500 ML IV PRN ×2 (12:48→21:04)
--- NOTE | 2018-12-01 14:10 | NUR ---
!st corpack placment led to sever kink in line. pulled and replaced. will verify placement.
--- NOTE | 2018-12-01 15:32 | NUR ---
Notified Dr canas of difficulty placing corpak due to hernia. He will consult with Dr Reinoso on next step.
--- NOTE | 2018-12-01 16:57 | NUR ---
IR RN came to unit to attempt Corpack placement for 3rd time. Was coiled and bleeding from nose. Removed intact and notified Dr Roberts who consulted with dr Reinoso. Pt will have a small gauge NG for feeings and plan for peg placement on Satuday by dr Reinoso.
--- NOTE | 2018-12-01 17:58 | NUR ---
Problems reprioritized. Patient report given, questions answered & plan of care reviewed with RANJAN Olson.
--- NOTE | 2018-12-01 18:30 | NUR ---
Patient in room ANEL 358. I have received report from Hazel WOODRUFF and had the opportunity to ask questions and assume patient care. Patient resting eyes closed respirations even.
[2018-12-01 19:00] VITALS: BP 132/67
--- NOTE | 2018-12-01 19:00 | NUR ---
Received order from Dr. Roberts to place NG smallest size as able, use dietary recommendation for continuous feed from 11/30/18, and ensure that residual orders and aspirations precautions are followed. Will continue to monitor.
[2018-12-01] MEDS: lactose-reduced food (Ensure Enlive) - 237ml bottle PO SCH ×4 (20:06→20:09)
[2018-12-02] VITALS: BP 114/69
[2018-12-02] MEDS: piperacillin/tazo 3.375gm/50ml 50 ML IV SCH ×3 (05:37→20:16)
[2018-12-02] MEDS: Potassium Cl inj 20 MEQ in dextrose 5%-water 990 ML IV SCH ×3 (05:38→20:35)
[2018-12-02 06:08] LABS: EOSINOPHILS # (AUTO) 0.1 X10'3 (0-0.9); HEMATOCRIT 23.8 % (35.0-45.0); HEMOGLOBIN 8.1 g/dl (12.0-16.0); MEAN CORPUSCULAR VOLUME 85.5 FL (78-98); MEAN PLATELET VOLUME 8.8 FL (7.4-10.4); PLATELET COUNT 120 X10'3 (140-440); RED CELL DISTRIBUTION WIDTH 16.3 % (11.5-14.5); WHITE BLOOD COUNT 4.6 X10'3 (4.5-11.0)
[2018-12-02 06:11] LABS: BASOPHILS % (AUTO) 0.8 % (0-1); EOSINOPHILS % (AUTO) 1.8 % (0-6); LYMPHOCYTES # (AUTO) 0.8 X10'3 (1.1-4.8); LYMPHOCYTES % (AUTO) 16.2 % (21-51); MEAN CORPUSCULAR HEMOGLOBIN 29.1 PG (27.0-31.0); MONOCYTES # (AUTO) 0.3 X10'3 (0-0.9); MONOCYTES % (AUTO) 7.1 % (2-12); NEUTROPHILS # (AUTO) 3.4 X10'3 (1.8-7.7); NEUTROPHILS % (AUTO) 74.1 % (42-75); RED BLOOD COUNT 2.78 X10'6 (4.20-5.60)
[2018-12-02 06:24] LABS: ANION GAP 8 (8-16); BLOOD UREA NITROGEN 7 MG/DL (7-18); BUN/CREATININE RATIO 7.9 (6.6-38.0); CALCIUM 6.7 MG/DL (8.5-10.1); CHLORIDE 109 MMOL/L (99-107); CREATININE 0.89 MG/DL (0.40-0.90); GLUCOSE 83 MG/DL (70-104); MAGNESIUM 2.1 MG/DL (1.5-2.4); SODIUM 145 MMOL/L (135-145); TOTAL CARBON DIOXIDE 27.8 MMOL/L (24-32); eGFR 61 ML/MIN
[2018-12-02 06:29] LABS: POTASSIUM 2.7 MMOL/L (3.5-5.1)
--- NOTE | 2018-12-02 06:37 | NUR ---
Patient in room ANEL 358. I have received report from glynn stark and had the opportunity to ask questions and assume patient care.
--- NOTE | 2018-12-02 06:50 | NUR ---
Problems reprioritized. Patient report given, questions answered & plan of care reviewed with Barbie WOODRUFF.
[2018-12-02 07:00] VITALS: BP 121/53
[2018-12-02 07:42] LABS: ANISOCYTOSIS 1+; HYPOCHROMASIA 1+; PLATELET ESTIMATE DECREASED; TARGET CELLS 1+
[2018-12-02] MEDS: hydroxychloroquine 200mg tablet PO SCH (08:00)
[2018-12-02] MEDS: aspirin 81mg tablet.DR PO SCH (08:00)
[2018-12-02] MEDS: lactobacillus rhamnosus 10,000 MMU CELLS/CAPSULE PO SCH ×2 (08:00→19:40)
[2018-12-02] MEDS: lactose-reduced food (Ensure Enlive) - 237ml bottle PO SCH ×3 (08:00→18:00)
[2018-12-02] MEDS: LIDOcaine 1% 30ml vial 5 ML in potassium Cl 40MEQ/NS 500ml 500 ML IV PRN ×2 (09:08→15:33)
[2018-12-02 11:38] VITALS: BP 106/58
--- NOTE | 2018-12-02 14:34 | NUR ---
TF consult: Pt with nasal [place] sump placed. Per RN pt has already started on TF which is currently running at 40 mL/hr using Jevity 1.2, which is to be increased as tolerated at 1600 per RN. Per MD notes pt to receive PEG tomorrow. Recommend continuing PO diet s/p PEG placement since pt passed BSS with UNIT COORDINATOR. TF recommendations below, will continue to follow. Recommendations: 1) Continuous TF of Jevity 1.2 to begin at current rate of 40 mL/hr and advance by 20 mL as tolerated q 8 hours to goal rate of 65 mL/hr to provide: total volume of 1560 mL/day, 1872 kcal, 87 g protein, and 1259 water 2) Water flushes of 105 mL q 4 hours 3) Prealbumin q / 4) Daily wt 5) Advance PO diet as medically indicated with UNIT COORDINATOR recs s/p PEG placement Addendum: 12/02/18 at [address] Amended: Links added.
--- NOTE | 2018-12-02 18:35 | NUR ---
Patient in room [facility] 358. I have received report from Barbie Hart and had the opportunity to ask questions and assume patient care. Addendum: 12/02/18 at 1912 by Christy Alcocer RN Amended: Links added.
--- NOTE | 2018-12-02 18:48 | NUR ---
Problems reprioritized. Patient report given, questions answered & plan of care reviewed with AMRIK WOODRUFF.
[2018-12-02 19:30] VITALS: BP 118/65
--- NOTE | 2018-12-02 19:50 | NUR ---
pt meds given and checked for ng placement that is in the left nares and noted in place and no residual. tube feeding raised from 60 cc to goal rate of 65 and flushed with water.
--- NOTE | 2018-12-02 21:00 | NUR ---
pt positioned to comfort no change wic in place collecting urine. pt wound vac at 125 remains intact to abd surgical dehisced wound.
--- NOTE | 2018-12-02 22:57 | NUR ---
resting eyes closed without changes at this time. positioned.
--- NOTE | 2018-12-02 23:05 | NUR ---
pt inc of stool and urine. skin care done. new Optifoam to bottom as a preventative and pt around anus and labia pink Calazime cream applied to the area and liens changed.
--- NOTE | 2018-12-02 23:50 | NUR ---
pt had 5cc residual in the ng and flushed with 105cc of water.
[2018-12-03] VITALS: BP 137/72
--- NOTE | 2018-12-03 00:15 | NUR ---
pt now NPO for peg tube insertion.
--- NOTE | 2018-12-03 02:15 | NUR ---
pt resting eyes closed.
[2018-12-03] MEDS: piperacillin/tazo 3.375gm/50ml 50 ML IV SCH ×3 (03:35→21:40)
--- NOTE | 2018-12-03 03:50 | NUR ---
inc of stool skin care done and Calazime cream applied to it.
--- NOTE | 2018-12-03 04:00 | NUR ---
pt npo at this time. Addendum: 12/03/18 at 0427 by Christy Alcocer RN Amended: Links added.
--- NOTE | 2018-12-03 04:50 | NUR ---
pt position for the wic checked skin remains clean and dry at this time.
--- NOTE | 2018-12-03 05:48 | NUR ---
pt awake turned skin clean and dry.
--- NOTE | 2018-12-03 06:04 | NUR ---
Problems reprioritized. Patient report given, questions answered & plan of care reviewed with Barbie aHrt. Addendum: 12/03/18 at 0604 by Christy Alcocer RN Amended: Links added.
[2018-12-03] MEDS: aspirin 81mg tablet.DR PO SCH (06:31)
[2018-12-03] MEDS: hydroxychloroquine 200mg tablet PO SCH (06:31)
[2018-12-03] MEDS: lactobacillus rhamnosus 10,000 MMU CELLS/CAPSULE PO SCH ×2 (06:31→21:40)
[2018-12-03] MEDS: lactose-reduced food (Ensure Enlive) - 237ml bottle PO SCH ×3 (06:31→18:00)
--- NOTE | 2018-12-03 06:36 | NUR ---
Patient in room ANEL 358. I have received report from AMRIK WOODRUFF and had the opportunity to ask questions and assume patient care.
[2018-12-03 07:04] LABS: HEMOGLOBIN 8.2 g/dl (12.0-16.0); MEAN PLATELET VOLUME 9.1 FL (7.4-10.4); WHITE BLOOD COUNT 4.3 X10'3 (4.5-11.0)
[2018-12-03 07:06] LABS: HEMATOCRIT 24.7 % (35.0-45.0); MEAN CORPUSCULAR HEMOGLOBIN 28.7 PG (27.0-31.0); MEAN CORPUSCULAR HGB CONC 33.4 g/dL (33.0-36.5); MEAN CORPUSCULAR VOLUME 85.9 FL (78-98); PLATELET COUNT 145 X10'3 (140-440); RED BLOOD COUNT 2.87 X10'6 (4.20-5.60); RED CELL DISTRIBUTION WIDTH 16.5 % (11.5-14.5)
[2018-12-03 07:15] LABS: ALBUMIN 0.9 G/DL (3.4-5.0); ANION GAP 8 (8-16); BLOOD UREA NITROGEN 9 MG/DL (7-18); CALCIUM 6.6 MG/DL (8.5-10.1); CHLORIDE 109 MMOL/L (99-107); GLUCOSE 87 MG/DL (70-104); MAGNESIUM 1.7 MG/DL (1.5-2.4); POTASSIUM 3.2 MMOL/L (3.5-5.1); SODIUM 143 MMOL/L (135-145); TOTAL CARBON DIOXIDE 26.3 MMOL/L (24-32); eGFR 60 ML/MIN
[2018-12-03 07:17] VITALS: BP 125/58
[2018-12-03 08:32] LABS: NUCLEATED RED BLOOD CELLS 1 /100WBC (0-0); TOTAL CELLS COUNTED 100
[2018-12-03 08:33] LABS: ANISOCYTOSIS 1+; HYPOCHROMASIA 1+; PLATELET ESTIMATE NORMAL; POLYCHROMASIA 1+; ROULEAUX 1+; TARGET CELLS 1+
[2018-12-03] MEDS ORDERED: potassium Cl oral solution 20 MEQ/15 ML PO PRN ×3 (08:35→21:25)
--- NOTE | 2018-12-03 09:00 | NUR ---
DC NG TUBE, PT TOLERATED WELL. STARTED ON REG DIET, PT TOLERATING WELL SO FAR. WILL CONT TO MONITOR.
[2018-12-03] MEDS: Potassium Cl inj 20 MEQ in dextrose 5%-water 990 ML IV SCH ×2 (09:13→23:15)
[2018-12-03] MEDS: potassium Cl oral solution 20 MEQ/15 ML PO PRN ×2 (09:20→14:18)
[2018-12-03] MEDS: levoTHYROXINE 75mcg tablet PO SCH (10:22)
[2018-12-03 11:34] VITALS: BP 126/57
[2018-12-03 18:00] VITALS: BP 151/74
--- NOTE | 2018-12-03 18:14 | NUR ---
Problems reprioritized. Patient report given, questions answered & plan of care reviewed with AMRIK WOODRUFF.
--- NOTE | 2018-12-03 18:35 | NUR ---
Patient in room AN[facility] 358. I have received report from OSWALD WOODRUFF and had the opportunity to ask questions and assume patient care.
--- NOTE | 2018-12-03 18:41 | NUR ---
Patient in room [facility] 358. I have received report from OSWALD WOODRUFF and had the opportunity to ask questions and assume patient care. Addendum: 12/03/18 at 1841 by Christy Alcocer RN Amended: Links added.
--- NOTE | 2018-12-03 20:00 | NUR ---
Student documentation: I have reviewed and agree with all interventions, assessments performed and documented by PRIMITIVO MERAZ [facility] RANJAN STUDENT. Addendum: 12/04/18 at 0024 by Christy Alcocer RN Amended: Links added.
--- NOTE | 2018-12-03 20:20 | NUR ---
HS MEDS GIVEN CRUSHED AND IN APPLE SAUCE. PT REQUESTING EYE DROPS.
--- NOTE | 2018-12-03 20:45 | NUR ---
CALL TO DR BENNETT AND ORDERS FOR ARTIFICIAL TEARS RECEIVED FROM DR BENNETT FOR HER.
[2018-12-03] MEDS ORDERED: potassium Cl oral solution 20 MEQ/15 ML PO ONE (21:25)
[2018-12-03] MEDS ORDERED: potassium Cl 40MEQ/NS 500ml 500 ML IV PRN ×2 (21:25)
[2018-12-03] MEDS: acetaminophen 325mg tablet PO PRN (21:41)
[2018-12-03] MEDS: polyvinyl alcohol ophthalmic drops 15ml bottle EACHEYE PRN (21:58)
--- NOTE | 2018-12-03 22:00 | NUR ---
PT INC OF URINE AND STOOL SKIN CARE DONE AND NEW WIC APPLIED.
--- NOTE | 2018-12-04 | NUR ---
RESTING EYES CLOSED WITHOUT S&S OF DISTRESS AT THIS TIME.
[2018-12-04] MEDS: Potassium Cl inj 20 MEQ in dextrose 5%-water 990 ML IV SCH ×2 (01:59→19:26)
--- NOTE | 2018-12-04 02:00 | NUR ---
PT RESTING NO CHANGES AT THIS TIME.
[2018-12-04 02:16] VITALS: BP 121/56
--- NOTE | 2018-12-04 04:00 | NUR ---
PT REPOSITIONED NO S&S OF DISTRESS.
[2018-12-04] MEDS: piperacillin/tazo 3.375gm/50ml 50 ML IV SCH ×3 (04:37→21:07)
--- NOTE | 2018-12-04 05:45 | NUR ---
Student documentation: I have reviewed and agree with all interventions, assessments performed and documented by PRIMITIVO DANIELSON RN STUDENT.Student Medication Administration: For this medication-pass time frame, all medication were reviewed, dispensed, administered and documented per hospital policy by PRIMITIVO DANIELSON RN STUDENT.
[2018-12-04 05:52] LABS: BASOPHILS % (AUTO) 1.1 % (0-1); EOSINOPHILS # (AUTO) 0.1 X10'3 (0-0.9); EOSINOPHILS % (AUTO) 3.3 % (0-6); HEMOGLOBIN 8.3 g/dl (12.0-16.0); LYMPHOCYTES # (AUTO) 1.1 X10'3 (1.1-4.8); LYMPHOCYTES % (AUTO) 24.5 % (21-51); MEAN CORPUSCULAR HEMOGLOBIN 29.4 PG (27.0-31.0); MEAN CORPUSCULAR HGB CONC 34.6 g/dL (33.0-36.5); MEAN CORPUSCULAR VOLUME 85.2 FL (78-98); MEAN PLATELET VOLUME 8.9 FL (7.4-10.4); MONOCYTES # (AUTO) 0.4 X10'3 (0-0.9); MONOCYTES % (AUTO) 8.1 % (2-12); NEUTROPHILS # (AUTO) 2.8 X10'3 (1.8-7.7); PLATELET COUNT 142 X10'3 (140-440); RED BLOOD COUNT 2.82 X10'6 (4.20-5.60); RED CELL DISTRIBUTION WIDTH 16.7 % (11.5-14.5); WHITE BLOOD COUNT 4.4 X10'3 (4.5-11.0)
[2018-12-04 06:16] LABS: ALBUMIN 0.9 G/DL (3.4-5.0); ANION GAP 8 (8-16); BLOOD UREA NITROGEN 9 MG/DL (7-18); CALCIUM 6.9 MG/DL (8.5-10.1); CHLORIDE 107 MMOL/L (99-107); GLUCOSE 69 MG/DL (70-104); MAGNESIUM 1.6 MG/DL (1.5-2.4); POTASSIUM 3.7 MMOL/L (3.5-5.1); SODIUM 140 MMOL/L (135-145); eGFR 60 ML/MIN
--- NOTE | 2018-12-04 07:00 | NUR ---
Problems reprioritized. Patient report given, questions answered & plan of care reviewed with SUDHAKAR WOODRUFF. Addendum: 12/04/18 at 0700 by Christy Alcocer RN Amended: Links added.
[2018-12-04 08:00] VITALS: BP 149/67
[2018-12-04] MEDS: lactobacillus rhamnosus 10,000 MMU CELLS/CAPSULE PO SCH ×2 (08:19→21:07)
[2018-12-04] MEDS: hydroxychloroquine 200mg tablet PO SCH (08:19)
[2018-12-04] MEDS: levoTHYROXINE 75mcg tablet PO SCH (08:19)
[2018-12-04] MEDS: lactose-reduced food (Ensure Enlive) - 237ml bottle PO SCH ×4 (08:19→19:28)
[2018-12-04] MEDS: aspirin 81mg tablet.DR PO SCH (08:19)
[2018-12-04 11:22] VITALS: BP 145/80
[2018-12-04] MEDS: megestrol acetate 400mg/10ml UD oral suspension PO SCH ×2 (11:40→21:07)
[2018-12-04 18:00] VITALS: BP 134/69
--- NOTE | 2018-12-04 18:10 | NUR ---
Patient in room [facility] 358. I have received report from Pricilla Hart and had the opportunity to ask questions and assume patient care. Addendum: 12/04/18 at 1919 by Christy Alcocer RN Amended: Links added.
--- NOTE | 2018-12-04 18:26 | NUR ---
Problems reprioritized. Patient report given, questions answered & plan of care reviewed with RANJAN Harrison.
--- NOTE | 2018-12-04 18:27 | NUR ---
Problems reprioritized. Patient report given, questions answered & plan of care reviewed with RANJAN Harrison.
--- NOTE | 2018-12-04 19:17 | NUR ---
Patient in room [facility] 358. I have received report from SUDHAKAR WOODRUFF and had the opportunity to ask questions and assume patient care.
[2018-12-04] MEDS: polyvinyl alcohol ophthalmic drops 15ml bottle EACHEYE PRN (21:07)
--- NOTE | 2018-12-04 21:15 | NUR ---
pt given hs meds with applesauce tolerated well. positioned to comfort. wic in place collecting urine.
[2018-12-04] MEDS: acetaminophen 325mg tablet PO PRN (21:17)
--- NOTE | 2018-12-04 22:51 | NUR ---
resting eyes closed no s&s of distress at this time.
[2018-12-05 00:10] VITALS: BP 130/60
--- NOTE | 2018-12-05 00:14 | NUR ---
pt clean and dry wic in place no s&s of distress at this time.
--- NOTE | 2018-12-05 02:15 | NUR ---
PATIENT GETTING A LOT OF REST TONIGHT. NO SIGNS OF DISCOMFORT. SLEEPING COMFORTABLY.
--- NOTE | 2018-12-05 02:16 | NUR ---
pt resting positioned to comfort.
[2018-12-05] MEDS: piperacillin/tazo 3.375gm/50ml 50 ML IV SCH (04:19)
--- NOTE | 2018-12-05 05:06 | NUR ---
Student documentation: I have reviewed and agree with all interventions, assessments performed and documented by PRIMITIVO DANIELSON RN STUDENT.Student Medication Administration: For this medication-pass time frame, all medication were reviewed, dispensed, administered and documented per hospital policy by PRIMITIVO DANIELSON RN STUDENT. Addendum: 12/05/18 at 0507 by Christy Alcocer RN Amended: Links added.
--- NOTE | 2018-12-05 06:30 | NUR ---
Patient in room [facility]. I have received report from RANJAN Harrison and had the opportunity to ask questions and assume patient care.
[2018-12-05 07:12] VITALS: BP 143/65
[2018-12-05 07:27] LABS: HEMOGLOBIN 8.3 g/dl (12.0-16.0); WHITE BLOOD COUNT 3.7 X10'3 (4.5-11.0)
[2018-12-05 07:29] LABS: HEMATOCRIT 25.2 % (35.0-45.0); MEAN CORPUSCULAR HEMOGLOBIN 28.3 PG (27.0-31.0); MEAN CORPUSCULAR VOLUME 85.8 FL (78-98); PLATELET COUNT 158 X10'3 (140-440); RED BLOOD COUNT 2.93 X10'6 (4.20-5.60); RED CELL DISTRIBUTION WIDTH 16.9 % (11.5-14.5)
[2018-12-05 07:37] LABS: ALBUMIN 0.8 G/DL (3.4-5.0); ANION GAP 10 (8-16); BLOOD UREA NITROGEN 10 MG/DL (7-18); BUN/CREATININE RATIO 11.1 (6.6-38.0); CHLORIDE 105 MMOL/L (99-107); GLUCOSE 76 MG/DL (70-104); POTASSIUM 3.1 MMOL/L (3.5-5.1); PREALBUMIN 8.2 MG/DL (19-36); SODIUM 140 MMOL/L (135-145); TOTAL CARBON DIOXIDE 25.2 MMOL/L (24-32); eGFR 60 ML/MIN
[2018-12-05] MEDS: aspirin 81mg tablet.DR PO SCH (07:51)
[2018-12-05] MEDS: lactobacillus rhamnosus 10,000 MMU CELLS/CAPSULE PO SCH (07:52)
[2018-12-05] MEDS: levoTHYROXINE 75mcg tablet PO SCH (07:52)
[2018-12-05] MEDS: hydroxychloroquine 200mg tablet PO SCH (07:52)
[2018-12-05] MEDS: megestrol acetate 400mg/10ml UD oral suspension PO SCH (07:57)
[2018-12-05 08:11] LABS: ANISOCYTOSIS 1+; PLATELET ESTIMATE NORMAL; TOTAL CELLS COUNTED 100
[2018-12-05] MEDS: Potassium Cl inj 20 MEQ in dextrose 5%-water 990 ML IV SCH (10:03)
[2018-12-05 11:15] VITALS: BP 126/66
--- NOTE | 2018-12-05 13:37 | NUR ---
reassessment: Pt NG removed and advance to mechanical soft diet per SCHEDULER CONVEYOR. Did not receive PEG. Megace added per MD for low PO 0-25% avg meals. LBM 12/05. Pt has additional protein needs for wound healing to abdominal surgical wound w/ vac s/p colostomy takedown; PALB 8.2. Pt refusing ensure enlive. Pt seen by RD for verbal high protein ed reinforcement and RD contact information provided. Pt agrees to strawberry/strawberry-banana John high protein smoothies BIDLD. RD d/w RN to d/c ensure enlive; MD notified. Also ADRIANNA [employer] MD for MVM for wound healing needs. Pt reports wanting gravy w/ all meats, likes mashed potatoes w/ gravy for dinner, would like tuna/egg salad sandwiches alternating for lunches w/ side salad and ranch. RD d/w dietary. In light of low PO hx, severe weakness, visible muscle wasting, and BLE +4 pitting arley pt qualifies for severe malnutrition at this time; MD notified. Will continue to monitor for ONS acceptance and additional protein needs. Recommendations: 1) continue mechanical soft diet per SCHEDULER CONVEYOR 2) strawberry/strawberry-banana John high protein smoothies BIDLD 3) MVM for wound healing 4) honor pt food preferences; see above 5) weekly wts Addendum: 12/05/18 at [address] Amended: Links added.
--- NOTE | 2018-12-05 14:10 | NUR ---
Patient only took part of her liquid potassium. She just didn't want it. I tried to get her to take it but she only got about maybe half of it down. Patient will be going to [facility] at 1530.
--- NOTE | 2018-12-05 14:48 | NUR ---
Called report to Ruby at [facility]. genetic supervisor time is 1530.
--- NOTE | 2018-12-05 15:30 | NUR ---
Patient discharged. Patient went to [facility] for rehab. Packet and belongings sent with medical personnel. Patient took her cell phone with her in her hand when she was wheeled out. PIV removed: cath tip intact.
== END 2018-12-05 15:34 | DRG 871 ==
LOC: ER 14:33 → ED HOLD 20:43 → ORTHO 4S 21:53 → SUR 3N 11-25 13:05
PROVIDERS: ADMIT Internal Medicine; ATTEND Family Medicine
PROC: 0W9F30Z Drainage of Abdominal Wall with Drainage Device, Percutaneous Approach (ICD-10-PCS; principal; 2018-11-25)
DX: A41.4 Sepsis due to anaerobes (principal); K65.1 Peritoneal abscess; E43 Unspecified severe protein-calorie malnutrition; G93.41 Metabolic encephalopathy; N39.0 Urinary tract infection, site not specified; F03.90 Unspecified dementia, unspecified severity, without behavioral disturbance, psychotic disturbance, mood disturbance, and anxiety; E87.6 Hypokalemia; B95.2 Enterococcus as the cause of diseases classified elsewhere; B96.20 Unspecified Escherichia coli [E. coli] as the cause of diseases classified elsewhere; D64.9 Anemia, unspecified; K57.90 Diverticulosis of intestine, part unspecified, without perforation or abscess without bleeding; D69.6 Thrombocytopenia, unspecified; G47.00 Insomnia, unspecified; E03.9 Hypothyroidism, unspecified; F32.9 Major depressive disorder, single episode, unspecified; F41.9 Anxiety disorder, unspecified; I10 Essential (primary) hypertension; R62.7 Adult failure to thrive; R19.04 Left lower quadrant abdominal swelling, mass and lump; Z74.01 Bed confinement status; Z88.5 Allergy status to narcotic agent; Z90.49 Acquired absence of other specified parts of digestive tract; Z68.25 Body mass index [BMI] 25.0-25.9, adult; Y92.89 Other specified places as the place of occurrence of the external cause; Z79.899 Other long term (current) drug therapy
CPT/HCPCS: 10160; 36415; 70544; 70551; 71045; 74018; 74176; 77012; 80048; 80053; 81001; 82948; 83605; 83735; 83880; 84132; 84134; 84145; 84443; 84484; 85025; 85610; 85730; 87040; 87070; 87077; 87088; 87186; 92616; 93005; 93306; 93970; 96365; 97110; 97162; 97530; 99285; G0378; J1644; J1940; J2001; J2060; J2543; J3475; J3480; J3490; J7070

== ENCOUNTER 2020-05-24 15:17 | Emergency (ER) | payer MEDICARE, MEDICAID ==
[~2020-05-24] VITALS: Ht 162.6 cm; Wt 54.5 kg
[~2020-05-24 15:17] MED LIST changes: +BUPR150T8 PO; -HYDR200T84 PO; +IBAN150T21 PO; -IBAN150T8 PO; +MIRT15TA PO; +MULT-620 PO; -MULT1TAB74 PO
[2020-05-24 17:32] LABS: BASOPHILS % (AUTO) 0.9 % (0-1); EOSINOPHILS # (AUTO) 0.1 X10'3 (0-0.9); EOSINOPHILS % (AUTO) 2.8 % (0-6); HEMATOCRIT 28.9 % (35.0-45.0); HEMOGLOBIN 9.6 g/dl (12.0-16.0); LYMPHOCYTES # (AUTO) 1.5 X10'3 (1.1-4.8); LYMPHOCYTES % (AUTO) 29.9 % (21-51); MEAN CORPUSCULAR HEMOGLOBIN 30.4 PG (27.0-31.0); MEAN CORPUSCULAR HGB CONC 33.4 g/dL (33.0-36.5); MEAN CORPUSCULAR VOLUME 91.1 FL (78-98); MEAN PLATELET VOLUME 8.5 FL (7.4-10.4); MONOCYTES # (AUTO) 0.5 X10'3 (0-0.9); MONOCYTES % (AUTO) 10.2 % (2-12); NEUTROPHILS # (AUTO) 2.9 X10'3 (1.8-7.7); NEUTROPHILS % (AUTO) 56.2 % (42-75); PLATELET COUNT 271 X10'3 (140-440); RED BLOOD COUNT 3.17 X10'6 (4.20-5.60); RED CELL DISTRIBUTION WIDTH 14.2 % (11.5-14.5); WHITE BLOOD COUNT 5.1 X10'3 (4.5-11.0)
[2020-05-24 17:39] LABS: PARTIAL THROMBOPLASTIN TIME 29 SECONDS (22-32)
[2020-05-24 17:41] LABS: ALANINE AMINOTRANSFERASE 32 U/L (12-78); ALBUMIN 2.2 G/DL (3.4-5.0); ALBUMIN/GLOBULIN RATIO 0.6 (1.1-1.5); ALKALINE PHOSPHATASE 140 IU/L (46-116); ANION GAP 8 (8-16); ASPARTATE AMINO TRANSFERASE 52 U/L (10-37); BILIRUBIN,TOTAL 0.3 MG/DL (0.1-1.0); BLOOD UREA NITROGEN 18 MG/DL (7-18); BUN/CREATININE RATIO 20.5 (6.6-38.0); CALCIUM 7.7 MG/DL (8.5-10.1); CHLORIDE 105 MMOL/L (99-107); CREATININE 0.88 MG/DL (0.40-0.90); GLUCOSE 83 MG/DL (70-104); SODIUM 137 MMOL/L (135-145); TOTAL CARBON DIOXIDE 24.1 MMOL/L (24-32); TOTAL PROTEIN 5.8 G/DL (6.4-8.2); eGFR 61 ML/MIN
[2020-05-24] MEDS ORDERED: potassium chloride 10mEq ER tablet PO STA (18:02)
[2020-05-24] MEDS ORDERED: dexamethasone sod phosphate 10mg/ml inj PO STA (18:05)
[2020-05-24] MEDS ORDERED: DOXY100C2 PO (19:08)
[2020-05-24] MEDS ORDERED: KEN0.1O TP (19:08)
--- NOTE | 2020-05-24 19:43 | NUR ---
I CALLED AND GOT ALE' PHONE NUMBER FROM [facility]EXT [facility] [employer] [employer] ROSMERY VALDERRAMA: [phone] AND HEATH: [phone]
[2020-05-24 20:28] VITALS: BP 167/91
== END 2020-05-24 20:29 | disposition home or self-care (01) ==
LOC: ER 15:17
DX: R21 Rash and other nonspecific skin eruption (principal); E87.6 Hypokalemia; I10 Essential (primary) hypertension; F41.9 Anxiety disorder, unspecified; Z90.49 Acquired absence of other specified parts of digestive tract; Z98.890 Other specified postprocedural states; Z88.5 Allergy status to narcotic agent; Z79.82 Long term (current) use of aspirin; Z79.899 Other long term (current) drug therapy
CPT/HCPCS: 36415; 80053; 85025; 85610; 85651; 85730; 86140; 99284; J1100

== ENCOUNTER 2021-10-22 00:43 | Inpatient (IN) | payer MEDICARE, MEDICAID ==
[~2021-10-22] VITALS: Ht 165.1 cm; Wt 65.9 kg
[~2021-10-22 00:43] MED LIST changes: +ALPR-623 PO; -ALPR0.5T8 PO; -BUPR150T8 PO; +DULO60CA60 PO; -IBAN150T21 PO; +LEVO50TA8 PO; +LIDO700A47 TP; +LISI20TA28 PO; -MIRT15TA PO
[2021-10-22 01:37] LABS: BASOPHILS # (AUTO) 0.1 X10'3 (0-0.2); BASOPHILS % (AUTO) 0.7 % (0-1); EOSINOPHILS # (AUTO) 0.1 X10'3 (0-0.9); EOSINOPHILS % (AUTO) 0.4 % (0-6); HEMATOCRIT 33.2 % (35.0-45.0); HEMOGLOBIN 11.2 g/dl (12.0-16.0); LYMPHOCYTES # (AUTO) 0.4 X10'3 (1.1-4.8); LYMPHOCYTES % (AUTO) 2.8 % (21-51); MEAN CORPUSCULAR HEMOGLOBIN 28.2 PG (27.0-31.0); MEAN CORPUSCULAR HGB CONC 33.9 g/dL (33.0-36.5); MEAN CORPUSCULAR VOLUME 83.2 FL (78-98); MEAN PLATELET VOLUME 8.2 FL (7.4-10.4); MONOCYTES # (AUTO) 0.5 X10'3 (0-0.9); MONOCYTES % (AUTO) 3.1 % (2-12); NEUTROPHILS # (AUTO) 14.1 X10'3 (1.8-7.7); PLATELET COUNT 258 X10'3 (140-440); RED BLOOD COUNT 3.99 X10'6 (4.20-5.60); RED CELL DISTRIBUTION WIDTH 16.5 % (11.5-14.5); WHITE BLOOD COUNT 15.1 X10'3 (4.5-11.0)
[2021-10-22 01:44] LABS: ALANINE AMINOTRANSFERASE 28 U/L (12-78); ALBUMIN 2.6 G/DL (3.4-5.0); ALBUMIN/GLOBULIN RATIO 0.6 (1.1-1.5); ALKALINE PHOSPHATASE 143 IU/L (46-116); ANION GAP 15 (8-16); ASPARTATE AMINO TRANSFERASE 102 U/L (10-37); BILIRUBIN,DIRECT 0.4 MG/DL (0-0.3); BILIRUBIN,TOTAL 0.8 MG/DL (0.1-1.0); BLOOD UREA NITROGEN 32 MG/DL (7-18); BUN/CREATININE RATIO 19.3 (6.6-38.0); CALCIUM 7.7 MG/DL (8.5-10.1); CHLORIDE 102 MMOL/L (99-107); CREATININE 1.66 MG/DL (0.40-0.90); GLUCOSE 54 MG/DL (70-104); POTASSIUM 3.8 MMOL/L (3.5-5.1); SODIUM 136 MMOL/L (135-145); TOTAL PROTEIN 6.8 G/DL (6.4-8.2); eGFR 29 ML/MIN
[2021-10-22 01:54] LABS: LIPASE 7127 U/L (73-393)
[2021-10-22] MEDS ORDERED: normal saline 1000ml 1,000 ML IV ONE ×2 (01:55→16:15)
[2021-10-22] MEDS ORDERED: CefTRIAXone/D5W-Rocephin 1gm 50 ML IV ONE (01:55)
[2021-10-22] MEDS ORDERED: dexamethasone sod phosphate 10mg/ml inj IV STA (02:58)
[2021-10-22 03:05] LABS: CLARITY,URINE SLIGHTLY CLOUDY (Clear); COLOR,URINE YELLOW (Yellow); GLUCOSE, URINE NEGATIVE (Neg); KETONES,URINE NEGATIVE (Neg); LEUKOCYTE ESTERASE ,URINE SMALL (Neg); NITRITES, URINE NEGATIVE (Neg); OCCULT BLOOD,URINE MODERATE (Neg); PH,URINE 8.5 (4.8-8.0); PROTEIN,URINE 30 mg/dl (Neg)
[2021-10-22 03:28] LABS: UA COLLECTION TYPE NON-SPECIFIED
[2021-10-22 03:31] LABS: BACTERIA,URINE 3+ /HPF (Neg); FINE GRANULAR CAST 0-3 /LPF (NEGATIVE); SQUAMOUS EPITHELIAL CELL,UR FEW /LPF (FEW)
[2021-10-22] MEDS ORDERED: ondansetron/PF 4mg/2ml inj IV PRN (07:50)
[2021-10-22] MEDS ORDERED: LORazepam 1 MG tablet PO PRN (07:50)
[2021-10-22] MEDS ORDERED: acetaminophen 325mg tablet PO PRN ×2 (07:50)
[2021-10-22] MEDS ORDERED: dextrose 50%-water 50ml dispensing syringe IV PRN (07:50)
[2021-10-22] MEDS ORDERED: ciprofloxacin lact 400MG/200ML 200 ML IV SCH (08:00)
[2021-10-22] MEDS: metroNIDAZOLE-Flagyl 500mg/NS 100 ML IV SCH ×2 (08:24→22:15)
[2021-10-22] MEDS: dexamethasone 4mg/ml inj IV SCH ×2 (08:24→20:47)
[2021-10-22] MEDS: folic acid 1mg tablet PO SCH (08:24)
[2021-10-22] MEDS: normal saline 1000ml 1,000 ML IV SCH ×3 (08:24→20:47)
[2021-10-22] MEDS: heparin, porcine 5000 units/ml vial SQ SCH ×3 (08:25→23:51)
[2021-10-22] MEDS: multivitamins, therapeutics tablet PO SCH (08:25)
[2021-10-22] MEDS: thiamine 100mg tablet PO SCH (08:29)
[2021-10-22] MEDS: LORazepam 2 mg/ml vial IV PRN ×2 (08:30→23:16)
--- NOTE | 2021-10-22 15:00 | NUR ---
Changed pt's linen and cleaned. Low back and sacral area are red with a few small open areas. Pt only moans and moves very little on her own. Unable to feed pt lunch due to aloc.
--- NOTE | 2021-10-22 16:10 | NUR ---
Notified Dr. Carter of pt's low b/p and urinary output. She requested ruiz placement and 1L NS.
[2021-10-22] MEDS ORDERED: DULO30CA52 PO (17:57)
[2021-10-22] MEDS ORDERED: ALPR0.255 PO (17:57)
[2021-10-22] MEDS ORDERED: LISI20TA28 PO (17:57)
[2021-10-22] MEDS ORDERED: LEVO50TA8 PO (17:57)
[2021-10-22] MEDS ORDERED: MULT-620 PO (18:01)
[2021-10-22] MEDS ORDERED: ASPI-611 PO (18:01)
--- NOTE | 2021-10-22 18:39 | NUR ---
Dr. Carter stated that pt no longer needs tele monitoring.
--- NOTE | 2021-10-22 19:25 | NUR ---
Report given to RANJAN Duffy on the Ortho Unit.
--- NOTE | 2021-10-22 19:35 | NUR ---
Patient came up to the unit via gurney. Used slide board to place patient into bed, bed placed in locked and low position. Call light placed within reach.
[2021-10-22 20:00] VITALS: BP 82/59
[2021-10-22] MEDS: lactobacillus rhamnosus 10,000 MMU CELLS/CAPSULE PO SCH (20:00)
[2021-10-22] MEDS: levoFLOXACIN-Levaquin 500mg/D5 100 ML IV SCH (20:47)
[2021-10-22] MEDS ORDERED: temazepam 15mg capsule PO PRN (21:00)
[2021-10-22 22:00] VITALS: BP 85/58
[2021-10-23] MEDS: HYDROmorphone inj. 0.5 MG/0.5 ML DISP.SYRIN IV PRN ×3 (01:58→19:53)
[2021-10-23 06:00] VITALS: BP 92/44
--- NOTE | 2021-10-23 06:31 | NUR ---
Problems reprioritized. Patient report given, questions answered & plan of care reviewed with Shade WOODRUFF.
--- NOTE | 2021-10-23 07:44 | NUR ---
Donaldo consult: Noted donaldo score 10, pt w/ abrasion to R hip and reddened area to coccyx though no open wounds documented. Will continue to monitor. Addendum: 10/23/21 at [address] Amended: Links added.
[2021-10-23] MEDS: folic acid 1mg tablet PO SCH (08:00)
[2021-10-23] MEDS: thiamine 100mg tablet PO SCH (08:00)
[2021-10-23] MEDS: aspirin 81mg, enteric-coated 1 TAB TABLET.DR PO SCH (08:00)
[2021-10-23] MEDS: multivitamins, therapeutics tablet PO SCH (08:00)
[2021-10-23] MEDS: levoTHYROXINE 25mcg tablet PO SCH (08:00)
[2021-10-23] MEDS: lactobacillus rhamnosus 10,000 MMU CELLS/CAPSULE PO SCH ×2 (08:00→20:00)
[2021-10-23] MEDS: heparin, porcine 5000 units/ml vial SQ SCH ×2 (08:08→16:54)
[2021-10-23] MEDS: dexamethasone 4mg/ml inj IV SCH ×2 (08:08→19:52)
[2021-10-23] MEDS: levoFLOXACIN-Levaquin 500mg/D5 100 ML IV SCH (08:08)
[2021-10-23] MEDS: metroNIDAZOLE-Flagyl 500mg/NS 100 ML IV SCH ×2 (08:08→19:52)
[2021-10-23 08:29] LABS: BASOPHILS % (AUTO) 0.1 % (0-1); EOSINOPHILS % (AUTO) 0.2 % (0-6); HEMATOCRIT 28.3 % (35.0-45.0); HEMOGLOBIN 9.6 g/dl (12.0-16.0); LYMPHOCYTES # (AUTO) 0.4 X10'3 (1.1-4.8); LYMPHOCYTES % (AUTO) 2.5 % (21-51); MEAN CORPUSCULAR HGB CONC 33.8 g/dL (33.0-36.5); MEAN CORPUSCULAR VOLUME 82.8 FL (78-98); MEAN PLATELET VOLUME 8.4 FL (7.4-10.4); MONOCYTES # (AUTO) 0.5 X10'3 (0-0.9); MONOCYTES % (AUTO) 3.6 % (2-12); NEUTROPHILS # (AUTO) 13.2 X10'3 (1.8-7.7); NEUTROPHILS % (AUTO) 93.6 % (42-75); PLATELET COUNT 205 X10'3 (140-440); RED BLOOD COUNT 3.42 X10'6 (4.20-5.60); RED CELL DISTRIBUTION WIDTH 16.4 % (11.5-14.5); WHITE BLOOD COUNT 14.1 X10'3 (4.5-11.0)
[2021-10-23 09:46] LABS: ALBUMIN 1.7 G/DL (3.4-5.0); ALBUMIN/GLOBULIN RATIO 0.5 (1.1-1.5); ALKALINE PHOSPHATASE 107 IU/L (46-116); ANION GAP 13 (8-16); ASPARTATE AMINO TRANSFERASE 126 U/L (10-37); BILIRUBIN,TOTAL 0.5 MG/DL (0.1-1.0); BLOOD UREA NITROGEN 39 MG/DL (7-18); BUN/CREATININE RATIO 20.7 (6.6-38.0); CALCIUM 6.4 MG/DL (8.5-10.1); CHLORIDE 111 MMOL/L (99-107); CREATININE 1.88 MG/DL (0.40-0.90); POTASSIUM 3.7 MMOL/L (3.5-5.1); SODIUM 139 MMOL/L (135-145); eGFR 25 ML/MIN
[2021-10-23 09:54] LABS: GLUCOSE 45 MG/DL (70-104)
[2021-10-23] MEDS: sodium bicarbonate (8.4%) inj. 100 MEQ in dextrose 5%-water 1,000 ML IV SCH ×2 (10:15→23:01)
[2021-10-23] MEDS ORDERED: dextrose 50%-water 50ml dispensing syringe IV PRN ×2 (10:15)
[2021-10-23] MEDS ORDERED: dextrose ORAL solution 15 GM/59 ML bottle PO PRN ×2 (10:15)
[2021-10-23] MEDS ORDERED: glucagon, human recombinant 1mg kit SUBCUT PRN (10:15)
[2021-10-23] MEDS ORDERED: MESSAGE TO PHARMACY PO ONE (10:15)
[2021-10-23 10:41] LABS: ALANINE AMINOTRANSFERASE 33 U/L (12-78)
[2021-10-23 11:00] VITALS: BP 95/47
[2021-10-23 11:51] LABS: HEMOGLOBIN A1C 5.3 % (4.5-6.2)
[2021-10-23 14:00] VITALS: BP 97/46
[2021-10-23] MEDS: LORazepam 2 mg/ml vial IV PRN ×2 (16:54→23:02)
[2021-10-23 18:00] VITALS: BP 107/48
--- NOTE | 2021-10-23 18:34 | NUR ---
Patient in room [facility]TH[facility] 4010. I have received report from RANJAN Laguerre and had the opportunity to ask questions and assume patient care.
[2021-10-23 22:00] VITALS: BP 91/38
[2021-10-24] MEDS: heparin, porcine 5000 units/ml vial SQ SCH ×3 (00:02→16:29)
--- NOTE | 2021-10-24 01:38 | NUR ---
Rt was paged regarding ABG that was ordered to be done on 10/23/21 in am. Will not be done because family is considering changing her to comfort care in the am and this would complicate things per RT. The order is also a day order and not a night order.
[2021-10-24 01:53] VITALS: BP 106/49
[2021-10-24] MEDS: HYDROmorphone inj. 0.5 MG/0.5 ML DISP.SYRIN IV PRN ×2 (04:57→16:29)
[2021-10-24 06:00] VITALS: BP 145/53
--- NOTE | 2021-10-24 06:25 | NUR ---
Problems reprioritized. Patient report given, questions answered & plan of care reviewed with RANJAN Laguerre.
--- NOTE | 2021-10-24 07:14 | NUR ---
PAGER ID: [phone] MESSAGE: Shaun TimoteoA: patients son/family wants patient to be comfort care antonino. His number is [phone]
[2021-10-24] MEDS: levoTHYROXINE 25mcg tablet PO SCH (08:00)
[2021-10-24] MEDS: multivitamins, therapeutics tablet PO SCH (08:00)
[2021-10-24] MEDS: aspirin 81mg, enteric-coated 1 TAB TABLET.DR PO SCH (08:00)
[2021-10-24] MEDS: folic acid 1mg tablet PO SCH (08:00)
[2021-10-24] MEDS: lactobacillus rhamnosus 10,000 MMU CELLS/CAPSULE PO SCH (08:00)
[2021-10-24] MEDS: thiamine 100mg tablet PO SCH (08:00)
[2021-10-24] MEDS: metroNIDAZOLE-Flagyl 500mg/NS 100 ML IV SCH (08:05)
[2021-10-24] MEDS: dexamethasone 4mg/ml inj IV SCH (08:05)
[2021-10-24] MEDS: sodium bicarbonate (8.4%) inj. 100 MEQ in dextrose 5%-water 1,000 ML IV SCH ×2 (08:07→16:29)
[2021-10-24] MEDS: LORazepam 2 mg/ml vial IV PRN ×2 (08:15→21:58)
[2021-10-24 09:03] LABS: BASOPHILS % (AUTO) 0.1 % (0-1); EOSINOPHILS % (AUTO) 0.2 % (0-6); HEMOGLOBIN 9.8 g/dl (12.0-16.0); LYMPHOCYTES # (AUTO) 0.5 X10'3 (1.1-4.8); LYMPHOCYTES % (AUTO) 2.7 % (21-51); MEAN CORPUSCULAR HEMOGLOBIN 28.2 PG (27.0-31.0); MEAN CORPUSCULAR HGB CONC 33.9 g/dL (33.0-36.5); MEAN CORPUSCULAR VOLUME 83.1 FL (78-98); MEAN PLATELET VOLUME 8.3 FL (7.4-10.4); MONOCYTES # (AUTO) 0.4 X10'3 (0-0.9); MONOCYTES % (AUTO) 2.1 % (2-12); NEUTROPHILS # (AUTO) 18.7 X10'3 (1.8-7.7); NEUTROPHILS % (AUTO) 94.9 % (42-75); PLATELET COUNT 194 X10'3 (140-440); RED BLOOD COUNT 3.49 X10'6 (4.20-5.60); RED CELL DISTRIBUTION WIDTH 16.8 % (11.5-14.5); WHITE BLOOD COUNT 19.7 X10'3 (4.5-11.0)
[2021-10-24 09:26] LABS: ALANINE AMINOTRANSFERASE 51 U/L (12-78); ALBUMIN 1.7 G/DL (3.4-5.0); ALBUMIN/GLOBULIN RATIO 0.5 (1.1-1.5); ALKALINE PHOSPHATASE 110 IU/L (46-116); ANION GAP 14 (8-16); ASPARTATE AMINO TRANSFERASE 137 U/L (10-37); BILIRUBIN,TOTAL 0.5 MG/DL (0.1-1.0); BLOOD UREA NITROGEN 47 MG/DL (7-18); BUN/CREATININE RATIO 19.2 (6.6-38.0); CHLORIDE 107 MMOL/L (99-107); CREATININE 2.45 MG/DL (0.40-0.90); GLUCOSE 215 MG/DL (70-104); POTASSIUM 3.6 MMOL/L (3.5-5.1); SODIUM 140 MMOL/L (135-145); TOTAL CARBON DIOXIDE 19.5 MMOL/L (24-32); TOTAL PROTEIN 5.3 G/DL (6.4-8.2); eGFR 19 ML/MIN
[2021-10-24 10:00] VITALS: BP 142/69
[2021-10-24 11:49] LABS: ANISOCYTOSIS 1+; BURR CELLS 1+; PLATELET ESTIMATE NORMAL; TOTAL CELLS COUNTED 100
[2021-10-24 11:50] LABS: TARGET CELLS FEW; TOXIC VACUOLATION FEW
[2021-10-24 14:00] VITALS: BP 157/70
[2021-10-24 18:00] VITALS: BP 154/46
--- NOTE | 2021-10-24 18:20 | NUR ---
Patient in room [facility]TH[facility] 4010. I have received report from RANJAN Laguerre and had the opportunity to ask questions and assume patient care.
[2021-10-24] MEDS ORDERED: LORazepam 1 MG tablet PO PRN (19:00)
[2021-10-24] MEDS: scopolamine 1mg/72 hr patch TD SCH (21:07)
[2021-10-25] MEDS: LORazepam 2 mg/ml vial IV PRN ×2 (02:19→19:46)
--- NOTE | 2021-10-25 06:16 | NUR ---
Problems reprioritized. Patient report given, questions answered & plan of care reviewed with RANJAN Tomas.
[2021-10-25] MEDS: heparin, porcine 5000 units/ml vial SQ SCH ×3 (06:51→15:27)
[2021-10-25 07:52] LABS: BASOPHILS % (AUTO) 0 % (0-1); EOSINOPHILS % (AUTO) 0.1 % (0-6); HEMATOCRIT 30.2 % (35.0-45.0); HEMOGLOBIN 10.4 g/dl (12.0-16.0); LYMPHOCYTES # (AUTO) 0.4 X10'3 (1.1-4.8); LYMPHOCYTES % (AUTO) 2.2 % (21-51); MEAN CORPUSCULAR HEMOGLOBIN 27.9 PG (27.0-31.0); MEAN CORPUSCULAR HGB CONC 34.5 g/dL (33.0-36.5); MEAN PLATELET VOLUME 8.3 FL (7.4-10.4); MONOCYTES # (AUTO) 0.4 X10'3 (0-0.9); MONOCYTES % (AUTO) 2.2 % (2-12); NEUTROPHILS % (AUTO) 95.5 % (42-75); PLATELET COUNT 230 X10'3 (140-440); RED BLOOD COUNT 3.72 X10'6 (4.20-5.60); RED CELL DISTRIBUTION WIDTH 16.4 % (11.5-14.5); WHITE BLOOD COUNT 19.8 X10'3 (4.5-11.0)
[2021-10-25] MEDS ORDERED: levoFLOXACIN-Levaquin 250mg/D5 50 ML IV SCH (08:00)
[2021-10-25 08:03] LABS: ALANINE AMINOTRANSFERASE 60 U/L (12-78); ALBUMIN 1.8 G/DL (3.4-5.0); ALBUMIN/GLOBULIN RATIO 0.5 (1.1-1.5); ALKALINE PHOSPHATASE 123 IU/L (46-116); ANION GAP 18 (8-16); ASPARTATE AMINO TRANSFERASE 111 U/L (10-37); BILIRUBIN,TOTAL 0.6 MG/DL (0.1-1.0); BLOOD UREA NITROGEN 57 MG/DL (7-18); BUN/CREATININE RATIO 22.4 (6.6-38.0); CALCIUM 6.3 MG/DL (8.5-10.1); CHLORIDE 108 MMOL/L (99-107); CREATININE 2.54 MG/DL (0.40-0.90); GLUCOSE 76 MG/DL (70-104); POTASSIUM 3.5 MMOL/L (3.5-5.1); SODIUM 143 MMOL/L (135-145); TOTAL PROTEIN 5.6 G/DL (6.4-8.2); eGFR 18 ML/MIN
--- NOTE | 2021-10-25 08:15 | NUR ---
Patient appears comfortable; Breathing is not labored; Pt will be turned every 2 hours for skin check and repositioning.
[2021-10-25 10:00] VITALS: BP 127/61
--- NOTE | 2021-10-25 18:15 | NUR ---
Patient in room [facility]TH[facility] 4010. I have received report from RANJAN Tomas and had the opportunity to ask questions and assume patient care.
--- NOTE | 2021-10-25 18:34 | NUR ---
Problems reprioritized. Patient report given Sadie RN, questions answered & plan of care reviewed with Sadie RN.
[2021-10-25 22:00] VITALS: BP 112/54
[2021-10-26] MEDS: heparin, porcine 5000 units/ml vial SQ SCH
--- NOTE | 2021-10-26 06:47 | NUR ---
Problems reprioritized. Patient report given, questions answered & plan of care reviewed with RANJAN Weber.
--- NOTE | 2021-10-26 07:15 | NUR ---
Patient in room [facility]TH[facility] 4010. I have received report from RANJAN Noel and had the opportunity to ask questions and assume patient care.
[2021-10-26] MEDS ORDERED: LORazepam 2 mg/ml vial IV PRN (08:55)
--- NOTE | 2021-10-26 09:02 | NUR ---
Noted pt made palliative/comfort care. Will continue to monitor. Recs: 1. Bowel care PRN Addendum: 10/26/21 at [address] Amended: Links added.
[2021-10-26] MEDS ORDERED: morphine 10mg/0.5ml (conc. morphine) oral syringe PO PRN (14:20)
[2021-10-26] MEDS ORDERED: morphine 10mg/ml inj. IV PRN (14:20)
--- NOTE | 2021-10-27 06:37 | NUR ---
Patient in room [facility]TH[facility] 4010. I have received report from Marcia WOODRUFF and had the opportunity to ask questions and assume patient care. Addendum: 10/27/21 at 0638 by Patricia Madrid RN I actually received report from Jessica WOODRUFF
--- NOTE | 2021-10-27 06:43 | NUR ---
Report given to Patricia WOODRUFF, questions answered, pt currently resting and in no distress
--- NOTE | 2021-10-27 18:37 | NUR ---
Problems reprioritized. Patient report given, questions answered & plan of care reviewed with Jessica RN.
[2021-10-27] MEDS: scopolamine 1mg/72 hr patch TD SCH (23:27)
--- NOTE | 2021-10-28 06:29 | NUR ---
Pt rested quietly all night, no signs of distress, RN turned q 2hr, pt tolerated well, no need for pain medication or ativan
--- NOTE | 2021-10-28 06:30 | NUR ---
Patient in room [facility]TH[facility] 4010. I have received report from Jessica WOODRUFF and had the opportunity to ask questions and assume patient care.
--- NOTE | 2021-10-28 11:00 | NUR ---
Patient passed at approximately 1034 this morning and went asystole. I notified the son Jad and he switched the mortuary to [facility] here in [place]. I called [facility] Addendum: 10/28/21 at 1319 by Patricia Madrid RN Patient picked up by [facility] at 1150 today.
== END 2021-10-28 10:30 | DRG 871 ==
LOC: ER 00:44 → ED HOLD 07:52 → ORTHO 4S 19:35
PROVIDERS: ADMIT Internal Medicine; ATTEND Family Medicine
PROC: 5A0935A Assistance with Respiratory Ventilation, Less than 24 Consecutive Hours, High Flow/Velocity Cannula (ICD-10-PCS; principal; 2021-10-23)
PROC: 5A0935A Assistance with Respiratory Ventilation, Less than 24 Consecutive Hours, High Flow/Velocity Cannula (ICD-10-PCS; 2021-10-24)
PROC: 5A0935A Assistance with Respiratory Ventilation, Less than 24 Consecutive Hours, High Flow/Velocity Cannula (ICD-10-PCS; 2021-10-25)
DX: A41.9 Sepsis, unspecified organism (principal); U07.1 COVID-19; J96.01 Acute respiratory failure with hypoxia; J12.82 Pneumonia due to coronavirus disease 2019; K85.90 Acute pancreatitis without necrosis or infection, unspecified; N39.0 Urinary tract infection, site not specified; N17.9 Acute kidney failure, unspecified; M48.54XA Collapsed vertebra, not elsewhere classified, thoracic region, initial encounter for fracture; E87.2 Acidosis; R65.20 Severe sepsis without septic shock; Z66 Do not resuscitate; Z51.5 Encounter for palliative care; E16.2 Hypoglycemia, unspecified; K76.0 Fatty (change of) liver, not elsewhere classified; E03.9 Hypothyroidism, unspecified; K57.90 Diverticulosis of intestine, part unspecified, without perforation or abscess without bleeding; N18.30 Chronic kidney disease, stage 3 unspecified; F03.90 Unspecified dementia, unspecified severity, without behavioral disturbance, psychotic disturbance, mood disturbance, and anxiety; I12.9 Hypertensive chronic kidney disease with stage 1 through stage 4 chronic kidney disease, or unspecified chronic kidney disease; R29.810 Facial weakness; F41.9 Anxiety disorder, unspecified; I95.9 Hypotension, unspecified; R16.0 Hepatomegaly, not elsewhere classified; R74.8 Abnormal levels of other serum enzymes; Z88.5 Allergy status to narcotic agent; Z90.49 Acquired absence of other specified parts of digestive tract
CPT/HCPCS: 36415; 70450; 71045; 71250; 72170; 74176; 80048; 80053; 80076; 81001; 82948; 83036; 83605; 83690; 84145; 84443; 85007; 85025; 87040; 87081; 87635; 93005; 94760; 96360; 99285; C9803; G0378; J0696; J0744; J1100; J1170; J1644; J1956; J2060; J3490; J7030; J7070